=== PATIENT | female | born 1950 ===

== ENCOUNTER 2020-07-24 15:31 | Outpatient (REF) | payer MEDICARE, SELFPAY | END 2020-07-24 15:32 | disposition home or self-care (01) | LOC: HO.LAB 15:31 | PROVIDERS: Visit Provider Internal Medicine | DX: Z20.828 Contact with and (suspected) exposure to other viral communicable diseases (principal) | CPT/HCPCS: C9803; U0003 ==

== ENCOUNTER → 2021-01-01 10:29 | Outpatient (BNV) | payer MEDICARE, SELFPAY | PROVIDERS: PCP Student in an Organized Health Care Education/Training Program; Visit Provider Internal Medicine Medical Oncology | DX: Z85.048 Personal history of other malignant neoplasm of rectum, rectosigmoid junction, and anus (principal) | CPT/HCPCS: 99213 ==

== ENCOUNTER → 2021-04-12 09:36 | Outpatient (BNVA) | payer MEDICARE, SELFPAY | PROVIDERS: PCP Student in an Organized Health Care Education/Training Program; Visit Provider Surgery | DX: C21.0 Malignant neoplasm of anus, unspecified (principal) | CPT/HCPCS: 46600; 99212 ==

== ENCOUNTER → 2022-04-03 09:08 | Outpatient (BNVA) | payer OTHER, SELFPAY | PROVIDERS: PCP Student in an Organized Health Care Education/Training Program; Visit Provider Surgery | DX: C21.0 Malignant neoplasm of anus, unspecified (principal); Z92.21 Personal history of antineoplastic chemotherapy; Z92.3 Personal history of irradiation | CPT/HCPCS: 46600; 99212 ==

== ENCOUNTER → 2022-10-03 12:35 | Outpatient (BNVA) | payer OTHER, SELFPAY | PROVIDERS: PCP Student in an Organized Health Care Education/Training Program; Referring Provider Internal Medicine Medical Oncology; Visit Provider Surgery | DX: Z85.048 Personal history of other malignant neoplasm of rectum, rectosigmoid junction, and anus (principal); Z92.21 Personal history of antineoplastic chemotherapy; Z92.3 Personal history of irradiation | CPT/HCPCS: 99202 ==

== ENCOUNTER 2022-11-15 07:48 | Day surgery (SDC) | payer OTHER, SELFPAY ==
[2022-11-12 15:05] VITALS: BMI 24.7
--- NOTE | 2022-11-14 09:28 | HO.ANESPROP2 ---
HPI - Anesthesia Eval Consult details Narrative: 72yo F for Colonoscopy with possible polypectomy PMFSH Active Problems Active Problems: All Active Problems (Updated 11/12/22 @ 14:59 by Shivani Wilkins RN) Anal squamous cell carcinoma (Acute) Past Medical History Medical History Anal squamous cell carcinoma Anemia Diabetes High cholesterol HTN (hypertension) Family History Family History Father Liver cancer Surgical History Surgical History History of colon surgery Hx of biopsy Hx of excision of mass Social History Social History Household Members: Spouse Housing: Apartment Are you a primary career development specialist to a significant other at home: No Do you presently have visiting nurse or other home services: No Alcohol intake: former Patient Tobacco Use Status: Never used Tobacco service: No Current occupational status: disabled Meds Allergies Allergy/AdvReac Type Severity Reaction Status Date / Time No Known Allergies Allergy Verified 10/03/22 13:02 [No Known Allergies*] Home Medications Medication Instructions Recorded Confirmed Last Taken Type atorvastatin 10 mg tablet 1 tab PO BEDTIME 01/01/21 11/12/22 Unknown History calcium carbonate 500 mg-vitamin 1 tab PO QAM 01/01/21 11/12/22 Unknown History D3 10 mcg (400 unit) tablet (Oyster Shell Calcium-Vitamin D3) ferrous sulfate 325 mg (65 mg 1 tab PO QAM 01/01/21 11/12/22 Unknown History iron) tablet (FeroSul) glipizide 10 mg tablet 1 tab PO BID 01/01/21 11/12/22 Unknown History lisinopril 10 mg tablet 20 mg PO QAM 01/01/21 11/12/22 Unknown History metformin 500 mg tablet,extended 1 tab PO BID 01/01/21 11/12/22 Unknown History release 24 hr timolol maleate 0.5 % eye drops 1 drp ophthalmic (eye) BID 01/01/21 11/12/22 Unknown History Exam Exam Date and Time: November 14, 2022927 Height,Weight and Vital Signs: Height 5 ft 2 in Weight 61.235 kg Pertinent Lab Results Pertinent Lab Results: Laboratory Tests 09/27/22 09/27/22 11:10 11:10 WBC 5.3 Hgb 11.7 L Hct 36.2 L Plt Count 155 L Sodium 143 Potassium 4.6 Chloride 105 Carbon Dioxide 29 BUN 21 H Creatinine 0.79 Assessment and Plan Assessment Anesthesia Assessment: Chart Reviewed
[2022-11-15 08:21] VITALS: BMI 24.7
[2022-11-15 08:31] VITALS: BP 137/64; PULSE 74; RESP 18; TEMP 36.3; O2SAT 97
[2022-11-15 08:33] VITALS: BMI 24.7
[2022-11-15 08:39] LABS: Glucose, Whole Blood 114 mg/dL (60-115)
--- NOTE | 2022-11-15 08:43 | MHC.SHP ---
Pre-Procedural Eval Section A Date of Service: 11/15/22 Section B Chief Complaint: Malignant neoplasm of anus, unspecified Details of Present Illness: Has history of anal squamous cell carcinoma, now due for screening colonoscopy Relevant Family History (Specify if Yes): No Relevant Social History: None Present Medications: see Short Stay Collaborative assessment Medical History: Significant History ( anal squamous cell carcinoma) Allergies: Allergies Allergy/AdvReac Type Severity Reaction Status Date / Time No Known Allergies Allergy Verified 10/03/22 13:02 [No Known Allergies*] Review of Systems Sugical H&P ROS: Negative: Constitution, Cardiovascular, Respiratory, Neurological, Psychiatric, Hem-Onc, Allergic/Immunologic, Gastrointestinal, Genitourinary, Musculoskeletal, Integumentary, Endocrine and Eyes/Ears/Nose/Throat Exam Surgical H&P Exam: Normal: HEENT, Normal: Heart, Normal: Lungs, Normal: Extremities, Normal: Abdomen, Normal: Skin and Normal: Neurological Plan Diagnosis/Plan: Unchanged I have reviewed the history and physical and performed a pertinent physical examination on my patient. No changes have occurred unless specified. Time Spent With Patient Time: Total time managing care of this patient today ____ minutes.
--- NOTE | 2022-11-15 08:44 | P.CONAN_ITS ---
[facility] Active Problems Active Problems: All Active Problems (Updated 11/12/22 @ 14:59 by Shivani Wilkins RN) Anal squamous cell carcinoma (Acute) Past Medical History Medical History Anal squamous cell carcinoma Anemia Diabetes High cholesterol HTN (hypertension) Family History Family History Father Liver cancer Surgical History Surgical History History of colon surgery Hx of biopsy Hx of excision of mass History of Problems with Anesthesia: No Social History Social History Household Members: Spouse Housing: Apartment Are you a primary hospice care sales consultant to a significant other at home: No Do you presently have visiting nurse or other home services: No Alcohol intake: former Patient Tobacco Use Status: Never used Tobacco Use of substances other than those prescribed or required for medical reasons: No Advance Directives: No Advance Directives Information Provided: Yes service: No Current occupational status: disabled Meds Allergies Allergy/AdvReac Type Severity Reaction Status Date / Time No Known Allergies Allergy Verified 10/03/22 13:02 [No Known Allergies*] Active Medications: Current Medications Lactated Ringer's (Lr) 1,000 mls @ 100 mls/hr IVCONT .Q10H [facility] Home Medications Medication Instructions Recorded Confirmed Last Taken Type atorvastatin 10 mg tablet 1 tab PO BEDTIME 01/01/21 11/12/22 Unknown History calcium carbonate 500 mg-vitamin 1 tab PO QAM 01/01/21 11/12/22 Unknown History D3 10 mcg (400 unit) tablet (Oyster Shell Calcium-Vitamin D3) ferrous sulfate 325 mg (65 mg 1 tab PO QAM 01/01/21 11/12/22 Unknown History iron) tablet (FeroSul) glipizide 10 mg tablet 1 tab PO BID 01/01/21 11/12/22 Unknown History lisinopril 10 mg tablet 20 mg PO QAM 01/01/21 11/12/22 Unknown History metformin 500 mg tablet,extended 1 tab PO BID 01/01/21 11/12/22 Unknown History release 24 hr timolol maleate 0.5 % eye drops 1 drp ophthalmic (eye) BID 01/01/21 11/12/22 Unknown History Exam Exam Date and Time: November 15, 2022 0844 Height,Weight and Vital Signs: Height 5 ft 2 in Weight 61.235 kg Last Vital Signs Temp 97.4 F 11/15/22 08:31 Pulse 74 11/15/22 08:31 Resp 18 11/15/22 08:31 BP 137/64 11/15/22 08:31 Pulse Ox 97 11/15/22 08:31 O2 Del Method Room Air 11/15/22 08:31 Pertinent Lab Results Pertinent Lab Results: Laboratory Tests 11/15/22 08:36 POC Glucose 114 Airway Mallampati Class: II (edentulous) TM Dist: >3cm Neck ROM: Full Denture: Upper and Lower Loose/Missing/Broken Teeth: Yes, Upper and Lower Heart: RRR Lungs: CTA Assessment and Plan Assessment Anesthesia Assessment: Anesthesia Plan Discussed and Chart Reviewed Final Anesthetic Review History of Problems with Anesthesia: No NPO: Yes ASA Class: II Final Preanesthetic Review: Meds/Allgs Chart Reviewed, Consent Obtained/Reviewed and Anes Risks/Benef Reviewed Patient Risk: Low Procedure Risk: Low Anesthetic Plan Anesthetic Plan: MAC: Disposition: Standard PACU
[2022-11-15] MEDS: Lactated Ringers 1,000 ML 100 ML IVCONT (08:47)
--- NOTE | 2022-11-15 09:51 | P.OP_ITS ---
Operative Note Operative Note Date of Service: 11/15/22 Narrative: Preop diagnosis: Colon cancer screening, Postop diagnosis:1. occasional diverticuli, sigmoid 2. Mild telangiectatic changes in the rectum from radiation Procedure: Colonoscopy Surgeon: Kush Blanco MD The patient is a 72-year-old female, referred to me for screening colonoscopy pre she does have a history of squamous cell carcinoma of the anus and had undergone Treatment with chemotherapy and radiation and has had good response.She is currently in remission. She understood the technique Of colonoscopy. She was aware of the risks, benefits, and alternatives. She was brought to the endoscopy suite. She was placed in left lateral decubitus position under monitored anesthesia care. A full digital rectal exam was done. There was note of fibrotic changes in the anal canal from radiation. I gently inserted the colonoscope through the anal orifice and advanced this with insufflation all the way to the cecum. The cecum was intubated. The cecum was identified via visualization of the ileocecal valve as well as the appendiceal orifice. The cecal mucosa was unremarkable. The scope was gradually withdrawn with careful examination of the entire colonic mucosa being done with scope withdrawal. The patient had good bowel prep so it was unlikely that any lesion may have been missed. There was note of occasional diverticuli the left colon sigmoid. The rectum was reached. There were no lesions seen. There was note of some telangiectatic changes in the distal rectum and anus. There were no lesions in the anal canal. The scope was then withdrawn completel y. The patient tolerated procedure well. There were no immediate complications. Her next colonoscopy for screening may be in the next 10 years if he still healthy by then. We will continue to do surveillance for her anal canal cancer.
[2022-11-15 09:55] VITALS: BP 124/54; PULSE 62; RESP 16; TEMP 36.3; O2SAT 99
[2022-11-15 10:10] VITALS: BP 124/61; PULSE 62; RESP 16; TEMP 36.7; O2SAT 97
== END 2022-11-15 10:24 | disposition home or self-care (01) ==
PROVIDERS: PCP Student in an Organized Health Care Education/Training Program; Visit Provider Surgery
PROC: 0DJD8ZZ Inspection of Lower Intestinal Tract, Via Natural or Artificial Opening Endoscopic (ICD-10-PCS; CPT 45378; principal; 2022-11-15 09:00)
DX: Z12.11 Encounter for screening for malignant neoplasm of colon (principal); Z85.048 Personal history of other malignant neoplasm of rectum, rectosigmoid junction, and anus; K62.7 Radiation proctitis; Y84.2 Radiological procedure and radiotherapy as the cause of abnormal reaction of the patient, or of later complication, without mention of misadventure at the time of the procedure; Y78.1 Therapeutic (nonsurgical) and rehabilitative radiological devices associated with adverse incidents; K57.30 Diverticulosis of large intestine without perforation or abscess without bleeding; Z92.21 Personal history of antineoplastic chemotherapy; Z92.3 Personal history of irradiation; D64.9 Anemia, unspecified; E11.9 Type 2 diabetes mellitus without complications; E78.00 Pure hypercholesterolemia, unspecified; I10 Essential (primary) hypertension; Z79.84 Long term (current) use of oral hypoglycemic drugs; Z79.899 Other long term (current) drug therapy; Z98.890 Other specified postprocedural states
CPT/HCPCS: G0105; 82947

== ENCOUNTER → 2022-12-09 09:45 | Outpatient (BNVA) | payer OTHER, SELFPAY | PROVIDERS: PCP Student in an Organized Health Care Education/Training Program; Visit Provider Surgery | DX: Z12.11 Encounter for screening for malignant neoplasm of colon (principal) | CPT/HCPCS: 99212 ==

== ENCOUNTER 2023-04-07 08:30 | Outpatient (AMB) | payer OTHER, SELFPAY ==
[2023-04-07 08:32] VITALS: BP 138/63; PULSE 70; BMI 25.4
--- NOTE | 2023-04-07 08:32 | A.OFFVIS_ITS ---
Intake Vital Signs 04/07/23 08:32 Height 5 ft 2 in Weight 139 lb BMI 25.4 BP 138/63 Blood Pressure Location Rt brachial Position Sitting Pulse 70 Intake Visit Reasons: year follow up rectal cancer Intake Note: This patient presents for a yearly follow-up assessment for rectal carcinoma. Patient c/o; reports no complaints at this time. Cashier General Required: Yes Cashier General Language: Snowboard Designer Name: Indigo Information Interpreted: non-clinical & clinical Accompanied by: Self / Same As Patient Allergies No Known Allergies [No Known Allergies*] Allergy (Verified 04/07/23 08:37) Medication List - Last Reconciled 04/07/23 by Kush Blanco MD atorvastatin 1 tab PO BEDTIME bisacodyl (Dulcolax (bisacodyl)) 10 mg (2 x 5 mg) PO ONCE 1 day calcium carbonate-vitamin D3 500 mg-10 mcg (400 unit) (Oyster Shell Calcium- Vitamin D3) 1 tab PO QAM ferrous sulfate (FeroSul) 1 tab PO QAM glipizide 1 tab PO BID lisinopril 20 mg PO QAM metformin ER 1 tab PO BID polyethylene glycol 3350 (Miralax) 238 grams PO ONCE 1 day timolol maleate 0.5% 1 drp ophthalmic (eye) BID HPI year follow up rectal cancer HPI Details 72-year-old fe male here for foll ow-up for a histor y of squamous cell carcinoma of the anus. She was madelyn gnosed to have squ amous cell carcino ma of the anus 201 5 and she had unde rgone chemotherapy and radiation for this. She has re sponded very well and has been doing well since then. She denies signif icant complaints a t this time. She had a colonoscopy last year which wa s unremarkable. She says she fee ls well overall. She denies any fei n in her anus. [facility] Medical History History of anal cancer Colon cancer screening Anal squamous cell carcinoma Anemia Diabetes High cholesterol HTN (hypertension) Surgical History History of colonoscopy (~11/15/22) Hx of excision of mass Hx of biopsy History of colon surgery Family History Father Liver cancer Social History Household Members: Spouse Housing: Apartment Are you a primary healthcare consulting manager to a significant other at home: No Do you presently have visiting nurse or other home services: No Alcohol intake: former Patient Tobacco Use Status: Never used Tobacco service: No Current occupational status: disabled Review of Systems Const Denies chills and Denies fever(s) Card Denies chest pain, Denies dyspnea and Denies dyspnea on exertion Resp Denies cough, Denies dyspnea and Denies dyspnea on exertion GI Denies hematochezia and Denies change in bowel habits Denies hematuria Musc Denies back pain and Denies limited range of motion Neuro Denies focal weakness and Denies convulsions Psych Denies depression and Denies mood swings Physical Exam Vital Signs: Last Vital Signs Pulse 70 04/07/23 08:32 BP 138/63 04/07/23 08:32 BMI result Body Mass Index 25.4 Const General: comfortable and no acute distress Orientation/consciousness: patient oriented x3 Neck Neck: Yes no lymphadenopathy Resp Auscultation: clear to auscultation bilaterally Cardio Rhythm: regular rhythm GI Other: Rectal exam shows fibrotic changes around the anus from previous radiation treatment, no new lesions surrounding the anal verge Palpation (GI): Soft to palpation, nontender and no guarding Neuro General: patient oriented x3 Office Procedures Anoscopy She was in andrzej-knife position. The anoscope was gently inserted. A full examination of the anal canal was done. There were no lesions seen. There is no ulceration or any mucosal changes. There was no fissure. There was no induration on digital exam. There was no blood Fibrotic changes and telangiectasia from previous radiation noted. [id number] Assessment & Plan Assessment & Plan (1) History of anal cancer: Code(s): Z85.048 - Personal history of other malignant neoplasm of rectum, rectosigmoid junction, and anus Plan: She is doing well after chemotherapy and radiation for squamous cell cancer of the anal canal. Her exam is unremarkable. Anoscopy does not reveal any suggestion of a new lesion or recurrence She continues to see her oncologist as well. I told her that I will repeat her anoscopy next year. Coding Level of Care Code Est Pt Level 3 (30194) Diagnoses History of anal cancer Z85.048 CPT Codes Details - CPT: 63361-[id number] ([id number])
== END 2023-04-07 08:51 | disposition home or self-care (01) ==
PROVIDERS: Visit Provider Surgery
DX: Z85.048 Personal history of other malignant neoplasm of rectum, rectosigmoid junction, and anus (principal)
CPT/HCPCS: 46600; 99213

== ENCOUNTER → 2023-04-07 08:30 | Outpatient (BNVA) | payer OTHER, SELFPAY | PROVIDERS: Visit Provider Surgery | DX: Z85.048 Personal history of other malignant neoplasm of rectum, rectosigmoid junction, and anus (principal) | CPT/HCPCS: 46600; 99212 ==

== ENCOUNTER 2023-05-22 11:27 | Outpatient (REF) | payer OTHER, SELFPAY ==
[2023-05-22 14:34] LABS: Alanine Aminotransferase 17 U/L (0-31); Albumin Level 4.7 g/dL (3.5-5.0); Alkaline Phosphatase 82 U/L (39-117); Anion Gap 13 (12-20); Aspartate Amino Transferase 17 U/L (5-31); Bilirubin Direct 0.3 mg/dL (0.0-0.5); Bilirubin Total 0.7 mg/dL (0.0-1.0); Blood Urea Nitrogen 29 mg/dL (9-16); Calcium 10.1 mg/dL (8.4-10.2); Carbon Dioxide 25 mmol/L (22-29); Chloride 108 mmol/L (96-108); Cholesterol 102 mg/dL (<200); Estimated Glomerular Filt Rate 58; Glucose Fasting 130 mg/dL (60-99); HDL Cholesterol 50 mg/dL (>40); LDL Cholesterol Calculated 44 mg/dL (<100); Potassium 4.3 mmol/L (3.3-5.1); Sodium 142 mmol/L (135-145); Total Protein 7.8 g/dL (6.5-8.0); Triglycerides 43 mg/dL (<150)
[2023-05-22 15:09] LABS: Microalbum/Creatinine Ratio Ur 13.6 ug/mg cr (<30)
== END 2023-05-22 11:28 | disposition home or self-care (01) ==
LOC: HO.CHCLDS 11:27
PROVIDERS: Visit Provider Student in an Organized Health Care Education/Training Program
DX: E11.9 Type 2 diabetes mellitus without complications (principal); I10 Essential (primary) hypertension
CPT/HCPCS: 36415; 80048; 80061; 80076; 82043; 82570

== ENCOUNTER 2023-12-23 09:02 | Outpatient (REF) | payer OTHER, SELFPAY ==
[2023-12-23 15:10] LABS: Estimated Average Glucose 148 mg/dL; Hemoglobin A1C 152.2736 umol/L; Hemoglobin A1c % 6.8 % (<6.0)
[2023-12-23 15:19] LABS: Alanine Aminotransferase 14 U/L (0-31); Albumin Level 4.5 g/dL (3.5-5.0); Alkaline Phosphatase 83 U/L (39-117); Anion Gap 13 (12-20); Aspartate Amino Transferase 14 U/L (5-31); Bilirubin Direct 0.3 mg/dL (0.0-0.5); Bilirubin Total 0.6 mg/dL (0.0-1.0); Blood Urea Nitrogen 22 mg/dL (9-16); Calcium 9.7 mg/dL (8.4-10.2); Carbon Dioxide 26 mmol/L (22-29); Chloride 110 mmol/L (96-108); Cholesterol 116 mg/dL (<200); Estimated Glomerular Filt Rate > 60; Glucose Random 148 mg/dL (60-115); HDL Cholesterol 52 mg/dL (>40); LDL Cholesterol Calculated 49 mg/dL (<100); Potassium 4.3 mmol/L (3.3-5.1); Sodium 145 mmol/L (135-145); Total Protein 7.5 g/dL (6.5-8.0); Triglycerides 76 mg/dL (<150)
== END 2023-12-23 09:03 | disposition home or self-care (01) ==
LOC: HO.CHCLDS 09:02
PROVIDERS: Visit Provider Student in an Organized Health Care Education/Training Program
DX: E11.9 Type 2 diabetes mellitus without complications (principal)
CPT/HCPCS: 36415; 80048; 80061; 80076; 83036

== ENCOUNTER 2024-04-05 12:55 | Outpatient (AMB) | payer OTHER, SELFPAY ==
--- NOTE | 2024-04-05 12:58 | A.OFFVIS_ITS ---
Vital Signs 04/05/24 13:06 Height 5 ft 5 in Weight 135 lb 8 oz BMI 22.5 BP 170/71 H Blood Pressure Location Lt brachial Position Sitting Pulse 68 Intake Visit Reasons: year follow up rectal cancer Intake Note: Patient is seen in office for yearly follow up visit, following rectal cancer. Pt c/o: denies n/v/d/c, no rectal bleeding, admits to an area in the bottom that is dry and would like to have evaluated Cosmetologist Apprentice Required: Yes Cosmetologist Apprentice Language: Cooling Tower Technician Services: Cosmetologist Apprentice Present Cosmetologist Apprentice Name: Maddie MULLEN Information Interpreted: non-clinical & clinical Accompanied by: Self / Same As Patient Allergies No Known Allergies [No Known Allergies*] Allergy (Verified 09/29/23 09:11) Medication List - Last Reconciled 04/05/24 by Kush Blanco MD atorvastatin 1 tab PO BEDTIME calcium carbonate-vitamin D3 500 mg-10 mcg (400 unit) (Oyster Shell Calcium- Vitamin D3) 1 tab PO QAM ferrous sulfate (FeroSul) 1 tab PO QAM glipizide 1 tab PO BID lisinopril 20 mg PO QAM metformin ER 1 tab PO BID timolol maleate 0.5% 1 drp ophthalmic (eye) BID HPI HPI year follow up rectal cancer: Details: 73-year-old female here for a follow-up for squamous cell carcinoma of the anus. She had been diagnosed in 2014 and had undergone chemotherapy and radiation with very good response. She has had anoscopy in the office every year this had been unremarkable She denies any significant complaints at this time. She denies passage of blood per rectum. She denies any pain in the anus. She had a colonoscopy last year which was unremarkable. [facility] Medical History History of anal cancer Colon cancer screening Anal squamous cell carcinoma Anemia Diabetes High cholesterol HTN (hypertension) Surgical History (Updated 04/05/24 @ 13:07 by PAZ Macias) Hx of cataract extraction History of colonoscopy (~11/15/22) Hx of excision of mass Hx of biopsy History of colon surgery Family History Father Liver cancer Social History Household Members: Spouse Housing: Apartment Are you a primary healthcare interpreter to a significant other at home: No Do you presently have visiting nurse or other home services: No Alcohol intake: former Patient Tobacco Use Status: Never used Tobacco service: No Current occupational status: disabled Review of Systems Const Denies chills and Denies fever(s) Card Denies chest pain, Denies dyspnea and Denies dyspnea on exertion Resp Denies cough, Denies dyspnea and Denies dyspnea on exertion GI Denies hematochezia and Denies change in bowel habits Denies hematuria Musc Denies back pain and Denies limited range of motion Neuro Denies focal weakness and Denies convulsions Psych Denies depression and Denies mood swings Physical Exam Const General: comfortable and no acute distress Orientation/consciousness: patient oriented x3 Neck Neck: Yes no lymphadenopathy Resp Auscultation: clear to auscultation bilaterally Cardio Rhythm: regular rhythm GI Other: Rectal exam shows radiation changes in the perianal skin with telangiectasia, dr johanny, no new lesions in the anus Palpation (GI): Soft to palpation, nontender and no guarding Neuro General: patient oriented x3 Office Procedures Anoscopy She was in andrzej-knife position. The anoscope was gently inserted. A full examination of the anal canal was done. There were no lesions in the anal canal. There was no ulceration or any growth. There was no bleeding. There was no induration on digital exam. She did have some perianal telangiectasia and skin dryness from radiation changes [id number] Assessment & Plan Assessment & Plan (1) History of anal cancer: Code(s): Z85.048 - Personal history of other malignant neoplasm of rectum, rectosigmoid junction, and anus Category: Medical Plan: Current exam does not reveal any suggestion of recurrent or new lesions. She feels well overall. I explained to her that I would continue with regular anoscopy every year. I did tell her that if she notices changes including new bleeding, worsening pain, she should come back to the office earlier than that. She seems to have a good understanding of the plan. She is comfortable with this. Coding Level of Care Code Est Pt Level 3 (26927) Diagnoses History of anal cancer Z85.048 CPT Codes Details - CPT: [id number] ([id number])
[2024-04-05 13:06] VITALS: BP 170/71; PULSE 68; BMI 22.5
== END 2024-04-05 13:19 | disposition home or self-care (01) ==
PROVIDERS: PCP Student in an Organized Health Care Education/Training Program; Visit Provider Surgery
DX: Z85.048 Personal history of other malignant neoplasm of rectum, rectosigmoid junction, and anus (principal)
CPT/HCPCS: 46600; 99213

== ENCOUNTER → 2024-04-05 12:55 | Outpatient (BNVA) | payer OTHER, SELFPAY | PROVIDERS: PCP Student in an Organized Health Care Education/Training Program; Visit Provider Surgery | DX: Z85.048 Personal history of other malignant neoplasm of rectum, rectosigmoid junction, and anus (principal) | CPT/HCPCS: 46600; 99212 ==

== ENCOUNTER 2024-10-26 10:57 | Outpatient (REF) | payer OTHER, SELFPAY ==
--- OUTSIDE RECORDS SUMMARY | 2024-10-26 13:11 | XMS_ITS | Encounter Summary ---
Author Organization [employer] Address [address] [facility] [address] [place] [address] Care Team Providers Care Loom Changer Name Role Phone Rossi Huston MD Primary Care Provider [phone] Reason for Visit * Reason Comments Med Refill Encounter Details Date Type Department Care Team (Late st Contact Info) Description 05/03/2023 Refill [facility] [address] [place], [place] [phone] Rossi Huston MD [address] [place] [address] Social History Tobacco Use Types Packs/Day Years Used Date Smoking Tobacco: Never Assessed Comments Unknown Sex and Gender Information Value Date Recorded Sex Assigned at Female 05/27/2022 10:22 AM EDT Legal Sex Female 10:22 AM EDT Gender Identity Choose not to disclose 10:22 AM EDT Sexual Orientation Choose not to disclose 2021 10:22 AM EDT documented as of this encounter Plan of Treatment Not on file documented as of this encounter Visit Diagnoses Not on filedocumented in this encounter Care Teams Loom Changer Relationship Specialty Start Date End Date Rossi Huston MD [address] [place] [address] PCP - General Family Medicine 08/26/13 documented as of this encounter
--- OUTSIDE RECORDS SUMMARY | 2024-10-26 13:12 | XMS_ITS | Encounter Summary ---
Author Organization [email or web address] Address [address] [facility] [address] [place] [address] Care Team Providers Care Calculating Machine Mechanic Name Role Phone Rossi Huston MD Primary Care Provider [phone] Encounter Details Date Type Department Care Team (Latest Contact Info) Description 10/26/2024 Travel Social History Tobacco Use Types Packs/Day Years Used Date Smoking Tobacco: Never Smokeless Tobacco: Never Alcohol Use Standard Drinks/Week Comments Never 0 (1 standard drink = 0.6 oz pur e alcohol) Alcohol Answer Date Recorded Frequency of Alcohol Consumption Not on file 05/22/2023 Average Number of Drinks Not on file 023 Frequency of Binge Drinking Not on file 04/28 Score 0 05/22/2023 Depression Answer Date Recorded Patient Health Questionnaire-9 Score 0 12/18/2023 Patient Health Questionnaire-9 Score 0 12/18/2023 Last PHQ-9: Questionnaire Data Not on file 0 12/18/2023 Housing Stability Answer Date Recorded What is your housing situation today? I have sixto chakraborty 05/22/[address] you li ve. Do you have problems with any of the following? None of the above 05/22/2023 Food Insecurity Answer Date Recorded Within the past 12 months, y ou worried that your food would run out before you got money to buy more: Never True 05/22/2023 Within the past 12 months,th e food you bought just didn't last and you didn't have enough money to get more: Never True Transportation Answer Date Recorded In the past 12 months, has l ack of transportation kept you from medical appts, meetings, work or from getting things needed for daily living? No 05/22/2023 Utilities Answer Date Recorded In the past 12 months, has t he electric, gas, oil or water company threatened to shut off services in your home? No 05/22/2023 Depression Answer Date Recorded Patient Health Questionnaire-2 Score 0 12/18/2023 Internet Access Answer Date Recorded Internet Access Q1 No 10/26/2024 Internet Access Q2 I do not want or need it 07/2024 Comments No Sex and Gender Information Value Date Recorded [...] Diagnoses Not on filedocumented in this encounter Additional Health Concerns Assessment Noted Time PHQ-9 Depression Total Score: 0 12/18/19 24 11:05 AM EDT documented as of this encounter Care Teams Calculating Machine Mechanic Relationship Specialty Start Date End Date Rossi Huston MD [address] [place] [id number] PCP - General Family Medicine 08/26/13 documented as of this encounter
--- OUTSIDE RECORDS SUMMARY | 2024-10-26 13:12 | XMS_ITS | Encounter Summary ---
Author Organization [employer] Address [address] [facility] [address] [place] [address] Care Team Providers Care Verification Lead Name Role Phone Rossi Huston MD Primary Care Provider [phone] Encounter Details Date Type Department Care Team ([facility] st Contact Info) Description 11/15/2022 Orders Only [facility] [address] [place] [address] Ly Keane LPN Social History Tobacco Use Types Packs/Day Years [...] on filedocumented in this encounter Care Teams Verification Lead Relationship Specialty Start Date End Date Rossi Huston MD [address] [place] [id number] PCP - General Family Medicine 08/26/13 documented as of this encounter
--- OUTSIDE RECORDS SUMMARY | 2024-10-26 13:12 | XMS_ITS | Encounter Summary ---
Author Organization [employer] Address [address] [facility] [address] [place] [address] Care Team Providers Care Guide Domestic Tour Name Role Phone Rossi Huston MD Primary Care Provider [phone] Reason for Visit * Reason Comments Med Refill Encounter Details Date Type Department Care Team ([facility] st Contact Info) Description 10/20/2024 Refill [facility] [address] [place] [address] Rossi Huston MD [address] [place] [address] Social History Tobacco Use Types Packs/Day Years [...] documented as of this encounter Care Teams Guide Domestic Tour Relationship Specialty Start Date End Date Rossi Huston MD [address] [place] [address] PCP - General Family Medicine 08/26/13 documented as of this encounter
--- OUTSIDE RECORDS SUMMARY | 2024-10-26 13:12 | XMS_ITS | Encounter Summary ---
Author Organization [employer] Address [address] [facility] [address] [place] [address] Care Team Providers Care Packaging Assembler Name Role Phone Rossi Huston MD Primary Care Provider [phone] Reason for Visit * Reason Comments Med Refill Encounter Details Date Type Department Care Team ([facility] st Contact Info) Description 05/08/2023 Refill [facility] [address] [place], [place] [phone] Gerber Tello MD [address] [place], [place] [phone] Social History Tobacco Use Types Packs/Day Years [...] on filedocumented in this encounter Care Teams Packaging Assembler Relationship Specialty Start Date End Date Rossi Huston MD [address] [place] [address] PCP - General Family Medicine 08/26/13 documented as of this encounter
--- OUTSIDE RECORDS SUMMARY | 2024-10-26 13:12 | XMS_ITS | Clinical Summary ---
Author Organization [employer] Address [address] [facility] 7t [place] [address] Care Team Providers Care Cottage Parent Name Role Phone Rossi Huston MD Primary Care Provider [phone] Allergies No known active allergies Medications TRUEplus Lancets 33G misc TEST BLOOD SUGAR TWICE DAILY 3 Active dapagliflozin (Farxiga) 5 MG Take 1 tablet (5 mg) by mouth Once per day. 30 tablet 11 4 12/26/19 25 Active metFORMIN (Glucophage) 1000 MG tablet Take 1 tablet by mouth every 12 (twelve) hours. 2 Active polyvinyl alcohol (Liquifilm Tears) 1.4 % ophthalmic solution PLACE ONE DROP IN EACH EYE FOUR TIMES DAILY 4 Active meclizine (Antivert) 25 MG tablet Take 1 tablet by mouth every 8 (eight) hours. Active Ferrous Sulfate (iron) 325 (65 Fe) MG tablet TAKE ONE TABLET EVERY MORNING 30 tablet 4 4 Active atorvastatin (Lipitor) 10 MG tablet TAKE ONE TABLET EVERY NIGHT AT BEDTIME 90 tablet 3 4 Active lisinopril 20 MG tablet Take 1 tablet (20 mg) by mouth in the morning. 90 tablet 3 4 07/05/20 25 Active glipiZIDE (Glucotrol) 10 MG tablet TAKE ONE TABLET BY MOUTH IN THE MORNING AND EVENING 180 tablet 4 4 Active FREESTYLE LITE test strip TEST BLOOD SUGAR TWICE DAILY 100 strip 5 5 Active Easy Touch Lancets 33G/Twist misc TEST BLOOD SUGAR TWICE DAILY 100 each 3 5 10/12/19 26 Active Calcium Carb-Cholecalc iferol 500-10 MG-MCG chewable tablet CHEW ONE TABLET EVERY MORNING WITH FOOD 30 tablet 11 5 Active Dextromethorph an-guaiFENesin (Mucinex DM) 30-600 MG tablet sustained-rele ase 12 hour Use 1 tab TID 28 tablet 5 Active FREESTYLE LITE test strip TEST BLOOD SUGAR TWICE DAILY 100 strip 5 4 10/12/19 25 Discontinued Calcium Carb-Cholecalc iferol 500-10 MG-MCG chewable tablet TAKE ONE TABLET EVERY MORNING WITH FOOD 30 tablet 11 4 10/27/19 25 Discontinued Easy Touch Lancets 33G/Twist misc TEST BLOOD SUGAR TWICE DAILY 90 each 3 4 10/12/19 25 Discontinued Active Problems Problem Noted Date Diagnosed Date Type 2 diabetes mellitus wit hout complication, without long-term current use of insulin 05/22/2023 Anal squamous cell carcinoma 05/22/2023 Essential hypertension 05/25/2014 3 Encounters Date Type Department Care Team Description 10/26/2024 10:45 AM EDT Office Visit [facility] CHC MED & PEDS [address] [place] [address] Rossi Huston MD Type 2 diabetes mellitus without complication, without long-term current use of insulin ([facility]) (Primary Dx); Essential hypertension; Viral syndrome 10/26/2024 Travel 10/20/2024 Refill [facility] MED & PEDS [address] [place] [id number] Rossi Huston MD 10/10/2024 Refill [facility] MED & PEDS [address] [place] [id number] Rossi Huston MD 09/30/2024 Orders Only [facility] MED & PEDS [address] [place] [address] Provider, MD Toni from Last 3 Months Immunizations Name Administration Dates Next Due Influenza High-dose Quadriva lent Preservative Free 05/14/2023,05/30/2022,06/01/2020 Influenza Injectable Quadriv alant Preservative Free IIV4 MDCK 07/13/2021 Influenza injectable quadriv alent IIV4 with preservative 05/06/2018,05/26/2017,06/04/2016 Influenza, High Dose Seasona l, Preservative Free 04/27/2024,08/25/2019 Influenza, IIV3, injectable 05/25/2014 Influenza, Injectable, MDCK, preservative free 05/01/2015 Influenza, Split (incl. david fied surface antigen) 05/21/2013,07/09/2012 Pneumococcal Conjugate PCV 13 06/04/2016 Pneumococcal Polysaccharide PPSV23 08/25/2019,,10/27/2012 Tdap 05/14/2023,10/27/2012 Zoster, Recombinant 09/18/2021,07/13/2021 Social History Tobacco Use Types Packs/Day Years Used Date Smoking Tobacco: Never Smokeless Tobacco: Never Tobacco Cessation:Counseling Given: Not Answered Alcohol Use Standard Drinks/Week Comments Never 0 [...] is your housing situation today? I have sixtosparkle chakraborty 05/22/[address] you [...] the past 12 months, has t he Team Apart, gas, oil or water [employer] threatened to shut off services in your [...] not to disclose 2021 10:22 AM EDT Last Filed Vital Signs Vital Sign Reading Time Taken Comments Blood Pressure 140/76 10/26/2024 10:35 AM EDT Pulse 70 10/26/2024 10:35 AM EDT Temperature 36.5 ??C (97.7 ??F) 10/26/2024 10:35 AM E DT Respiratory Rate 20 10/26/2024 10:35 AM EDT Oxygen Saturation 97% 10/26/2024 10:35 AM EDT Inhaled Oxygen Concentration - - Weight 59.9 kg (132 lb) 10/26/2024 10:35 AM EDT Height 160 cm (5' 3 ) 10/26/2024 10:35 AM EDT Body Mass Index 23.38 10/26/2024 10:35 AM EDT Plan of Treatment Health Maintenance Due Date Last Done Comments CT Colonography 1950 FIT DNA/Cologuard 1950 FIT 1950 FOBT 1950 Sigmoidoscopy 1950 Eye Exam 1960 Alcohol/Substance Use Screening 1962 Hepatitis C Screening 1968 COVID-19 Vaccine ( season) 2024 08/07/2021, 11/10/2020, 10/13/2020 Diabetes: Foot Exam 05/22/2024 05/22/2023, 05/22/2023, 05/22/2023, Additional history exists Diabetes: Urine Protein Screening 05/22/2024 05/22/2023, 01/01/2022, 01/17/2021 Colonoscopy 12/09/2024 Colorectal Cancer Screening 12/09/2024 Depression Screening 12/17/2024 12/18/2023, 12/18/19 Lipid Panel 12/22/2024 12/23/2023, 04/28, 01/01/2022, Additional history exists Diabetes: Hemoglobin A1C 01/25/2025 025, 04/27/2024, 12/23/2023, Additional history exists Mammogram 04/10/2025 04/10/2024 RSV Patients and Patients Aged 60 years or older (1 - 1-dose 75+ series) 2025 SDOH Screening 10/26/2025 10/26/2024 Tobacco Screening 10/26/2025 10/26/2024 DTaP/Tdap/Td Vaccines (3 - Td or Tdap) 05/14/2033 05/14/2023, 10/27/2012 Pneumococcal Vaccine: 50+ Years Completed 08/25/2019, 06/04/2016, 05/01/2015, Additional history exists Zoster Vaccines Completed 09/18/2021, 07/13/2021 Influenza Vaccine Completed 04/27/2024, , 05/30/2022, Additional history exists HIB Vaccines Aged Out No longer eligi ble based on patient's age to complete this topic HPV Vaccines Aged Out No longer eligi ble based on patient's age to complete this topic Hepatitis A Vaccines Aged Out No long er eligible based on patient's age to complete this topic Hepatitis B Vaccines Aged Out No long er eligible based on patient's age to complete this topic IPV Vaccines Aged Out No longer eligi ble based on patient's age to complete this topic Meningococcal Vaccine Aged Out No masha mateo eligible based on patient's age to complete this topic RSV under 20 months Aged Out No longe r eligible based on patient's age to complete this topic Rotavirus Vaccines Aged Out No longer eligible based on patient's age to complete this topic Procedures Procedure Name Priority Date/Time Associated Diagnosis Comments POCT INFLUENZA A Routine 10/26/2024 10:5 4 AM EDT Viral syndrome POCT INFLUENZA B Routine 10/26/2024 10:5 2 AM EDT Viral syndrome POCT RAPID COVID ANTIGEN Routine 10/26/2024 10:50 AM EDT Viral syndrome POCT GLYCATED HEMOGLOBIN, TOTAL Routine 10/26/2024 10:46 AM EDT Type 2 diabetes mellitus without complication, without long-term current use of insulin ([facility]/HCC) POCT GLUCOSE Routine 10/26/2024 10:45 AM EDT Type 2 diabetes mellitus without complication, without long-term current use of insulin ([facility]) COMPREHENSIVE METABOLIC PANEL Routine 09/28/2024 9:44 AM EST HM MAMMOGRAPHY Routine 04/10/2024 8:32 AM EDT LIPID PANEL, STANDARD Routine 12/23/2023 9:04 AM EDT Type 2 diabetes mellitus without complication, without long-term current use of insulin ([facility]) ALBUMIN, RANDOM URINE W/CREATININE Routine 05/22/2023 11:40 AM EDT from Last 3 Months or Most Recently Relevant to Health Maintenance Results * POCT Rapid Influenza A OSOM (10/26/2024 10:54 AM EDT) Pathologist [facility] Rapid Influenza A Ag Negative Negative, Indeterminate QC Media Lot # [id number] Lot# Expiration Date Swab Nasopharyngeal structure / Unknown 10/26/2024 10:54 AM EDT us Rossi Huston MD POINT OF CARE TEST ENTER/EDIT OR DERABLES Final Result * POCT Rapid Influenza B OSOM (10/26/2024 10:52 AM EDT) [facility] Rapid Influenza B Ag Negative Negative, Indeterminate QC Media Lot # [id number] Lot# Expiration Date Swab 10/26/2024 10:5 2 AM EDT us Rossi Hutson MD POINT OF CARE TEST ENTER/EDIT OR DERABLES Final Result * POCT Rapid Covid-19 BinaxNOW (10/26/2024 10:50 AM EDT) Rapid COVID Ag Negative QC Media Lot # [id number] Lot# Expiration Date Swab 10/26/2024 10:5 0 AM EDT Rossi Huston MD POINT OF CARE TEST ENTER/EDIT OR DERABLES Final Result * (ABNORMAL) POCT HGB A1C (10/26/2024 10:46 AM EDT) Hemoglobin A1C 7.7(A) 4.0 - 6.0 % QC Media Lot # [id number] Lot# Expiration Date Blood 10/26/2024 10:4 6 AM EDT Rossi Huston MD POINT OF CARE TEST ENTER/EDIT OR DERABLES Final Result * POCT Glucose (10/26/2024 10:45 AM EDT) Pathologist [facility] Glucose Blood, POC 170 60 - 200 mg/dL Comment:fasting QC Media Lot # [id number] Lot# Expiration Date Blood Capillary blood specimen / Unknown 10/26/2024 10:45 AM EDT Result [facility] Rossi Huston MD POINT OF CARE TEST ENTER/EDIT OR DERABLES Final Result * Comprehensive Metabolic Panel (09/28/2024 9:44 AM EST) Blood Venous blood specimen / Unknown Historical Provider LAB BLOOD ORDERABLES Balbina l Result * Hm Mammography (04/10/2024 8:32 AM EDT) Anatomical Region Laterality Modality Other Historical Provider HEALTH MAINTENANCE Final Result * Lipid Panel, Standard (12/23/2023 9:04 AM EDT) Triglycerides 76 <150 mg/dL [facility] Comment:Desirable Triglyceri de: less than 150 mg/dLBorderline High Triglyceride 150-199 mg/dLHigh Triglyceride: 200-499 mg/dLVery High Triglyceride: greater than or equal to 5OO mg/dL Cholesterol 116 <200 mg/dL [facility] Comment:Desirable Cholestero l: less than 200 mg/dLBorderline High Cholesterol: 200-239 mg/dLHigh Cholesterol: greater than 239 mg/dL LDL Cholesterol Calculated 49 <100 mg/dL [facility] Comment:Desirable LDL: less than 100 mg/dLNear Optimal/Above Optimal LDL: 110- 129 mg/dLBorderline High LDL: 130-159 mg/dLHigh LDL: 160-189 mg/dLVery High LDL: greater than or equal to 190 mg/dL HDL Cholesterol 52 >40 mg/dL [facility] Comment:Desirable HDL: great er than 40 mg/dL Note: This HDL assay may give artificially low results in patients with liver disease. Blood Venous blood specimen / Unknown 12/23/2023 9:04 AM EDT 12/23/2023 2:38 PM EDT us Rossi Huston MD LAB BLOOD ORDERABLES Final Resul t [facility] [address] [place] [phone] * Albumin, Random Urine W/Creatinine (05/22/2023 11:40 AM EDT) Creatinine, Urine 263.29 mg/dL [facility] Microalbumin Urine 36.0 mg/L [facility] Microalbum Creatinine Ratio Ur 13.6 <30 ug/mg cr [facility] Comment:Albumin/Creatinine R atio Reference Ranges: Normal: < 30 ug/mg creatinine Microalbuminuria: 30 - 300 ug/mg creatinineClinical Albuminuria: > 300 ug/mg creatinine 05/22/2023 11:4 0 AM EDT 05/22/2023 2:28 PM EDT Rossi Huston MD LAB URINE ORDERABLES Final Resul t [facility] [address] [place] [phone] [phone] from Last 3 Months or Most Recently Relevant to Health Maintenance Insurance * Guarantor: Katie Alexander Account Type Relation to Patient Date of Phone Billing Address [facility]Family [facility] [address] Care Teams Cottage Parent Relationship Specialty Start Date End Date Rossi Huston MD [address] [place] [id number] PCP - General Family Medicine 08/26/13
--- OUTSIDE RECORDS SUMMARY | 2024-10-26 13:12 | XMS_ITS | Encounter Summary ---
Author Organization [employer] Address [address] [facility] 7t [place] [address] Care Team Providers Care Commanding Officer Traffic Division Name Role Phone Rossi Huston MD Primary Care Provider [phone] Reason for Visit * Reason Comments Med Refill Encounter Details Date Type Department Care Team ([facility] st Contact Info) Description 08/19/2023 Refill [facility] CHC MED & PEDS [address] [place] [address] Rossi Huston MD [address] [place] [address] Social History Tobacco Use Types Packs/Day Years [...] Date Recorded Patient Health Questionnaire-9 Score 0 05/22/2023 Patient Health Questionnaire-9 Score 0 05/22/2023 Last PHQ-9: Questionnaire Data Not on file 1 Housing Stability Answer Date Recorded What is your housing situation today? I have isxto chakraborty 05/22/[address] you [...] Date Recorded Patient Health Questionnaire-2 Score 0 05/22/2023 Comments Unknown Sex and Gender Information Value [...] Noted Time PHQ-9 Depression Total Score: 0 05/22/20 23 10:44 AM EDT documented as of this encounter Care Teams Commanding Officer Traffic Division Relationship Specialty Start Date End Date Rossi Huston MD [address] [place] [phone] PCP - General Family Medicine 08/26/13 documented as of this encounter
--- OUTSIDE RECORDS SUMMARY | 2024-10-26 13:12 | XMS_ITS | Encounter Summary ---
Author Organization [employer] Address [address] [facility] 7t [place] [address] Care Team Providers Care Sheriffs Officer Name Role Phone Rossi Huston MD Primary Care Provider [phone] Encounter Details Date Type Department Care Team ([facility] st Contact Info) Description 09/30/2024 Orders Only [facility] CHC MED & PEDS [address] [place] [address] Provider, MD Toni Social History Tobacco Use Types Packs/Day Years [...] Recorded Patient Health Questionnaire-2 Score 0 12/18/2023 Comments No Sex and Gender Information Value Date Recorded Sex Assigned at Female 05/27/2022 10:22 AM EDT Legal Sex Female 10:22 AM EDT Gender Identity Choose not to disclose 10:22 AM EDT Sexual Orientation Choose not to disclose 2021 10:22 AM EDT documented as of this encounter Plan of Treatment Not on file documented as of this encounter Procedures Procedure Name Priority Date/Time Associated Diagnosis Comments COMPREHENSIVE METABOLIC PANEL Routine 09/28/2024 9:44 AM EST documented in this encounter Results * Comprehensive Metabolic Panel (09/28/2024 9:44 AM EST) Blood Venous blood specimen / Unknown us Historical Provider LAB BLOOD ORDERABLES Balbina l Result documented in this encounter Visit Diagnoses Not on filedocumented in this encounter Additional Health Concerns Assessment Noted Time PHQ-9 Depression Total Score: 0 12/18/19 24 11:05 AM EDT documented as of this encounter Care Teams Sheriffs Officer Relationship Specialty Start Date End Date Rossi Huston MD [address] [place] [phone] PCP - General Family Medicine 08/26/13 documented as of this encounter
--- OUTSIDE RECORDS SUMMARY | 2024-10-26 13:12 | XMS_ITS | Clinical Summary ---
Author Organization [employer] [facility] it[facility] Address [address] [place] [address] Care Team Providers Care Supervisor Belt And Link Assembly Name Role Phone Unavailable Primary Care Provider Unavailabl e Social History Tobacco Use Types Packs/Day Years Used Date Smoking Tobacco: Never Assessed Comments Unknown Sex and Gender Information Value Date Recorded Sex Assigned at Not on file Legal Sex Female 10:46 PM EST Gender Identity Not on file Sexual Orientation Not on file Plan of Treatment Health Maintenance Due Date Last Done Comments Breast Cancer Screening 1950 DTaP,Tdap,and Td Vaccines (1 - Tdap) 1969 Pneumococcal Vaccine: 50+ Ye ars (1 of 1 - PCV) 2000 Zoster Vaccines (1 of 2) 2000 COVID-19 Vaccine ( - 2023-2 5 season) 2024 Influenza Vaccine (Season Ended) 2025 RSV Immunization Patients 60 + Years Old (1 - 1-dose 75+ series) 2025 HIB Vaccines Aged Out No longer eligi [...] on patient's age to complete this topic MMR Vaccines Aged Out No longer eligi ble based on patient's age to complete this topic Meningococcal ACWY Vaccine Aged Out N o longer eligible based on patient's age to complete this topic Meningococcal B Vacine Aged Out No lo nger eligible based on patient's age to complete this topic RSV Immunization Patients Un bria 20 months Aged Out No longer eligible b ased on patient's age to complete this topic Varicella Vaccines Aged Out No longer eligible based on patient's age to complete this topic
--- OUTSIDE RECORDS SUMMARY | 2024-10-26 13:12 | XMS_ITS | Encounter Summary ---
Author Organization [employer] Address [address] [facility] 7t [place] [address] Care Team Providers Care Petroleum Inspector Name Role Phone Rossi Huston MD Primary Care Provider [phone] Reason for Visit * Reason Comments Diabetes fu Encounter Details Date Type Department Care Team ([facility] st Contact Info) Description 10/26/2024 10:45 AM EDT Office Visit [facility] CHC MED & PEDS [address] [place] [address] Rossi Huston MD [address] [place] [address] Type 2 diabetes mellitus without complication, without long-term current use of insulin ([facility]) (Primary Dx); Essential hypertension; Viral syndrome Social History Tobacco Use Types Packs/Day Years [...] AM EDT documented as of this encounter Last Filed Vital Signs Vital Sign Reading [...] Mass Index 23.38 10/26/2024 10:35 AM EDT documented in this encounter Progress Notes * Rossi Huston MD - 10/26/2024 10:45 AM EDT Subjective Patient ID: Katie Napier is a 74 y.o. adult who presents for Diabetes (fu). Diabetes Katie presents for Katie's follow-up diabetic visit. Katie has type 2 diabetes mellitus. Katie's disease course has been stable. Pertinent negatives for hypoglycemia include no headaches or sweats. Pertinent negatives for diabetes include no blurred vision, no chest pain, no foot ulcerations, no polydipsia, no polyphagia, no polyuria, no visual change, no weakness and no weight loss. There are no hypoglycemic complications. There are no diabetic complications. Risk factors for coronary artery disease include family history. Current diabetic treatment includes oral agent (dual therapy). Flu Symptoms This is a new problem. The current episode started yesterday. The problem occurs constantly. The problem has been unchanged. Associated symptoms include congestion, coughing, a fever and myalgias. Pertinent negatives include no chest pain, headaches, neck pain, visual change or weakness. Katie has tried nothing for the symptoms. Review of Systems Constitutional: Positive for fever. Negative for weight loss. HENT: Positive for congestion. Eyes: Negative for blurred vision. Respiratory: Positive for cough. Negative for shortness of breath. Cardiovascular: Negative for chest pain and palpitations. Gastrointestinal: Negative. Endocrine: Negative for polydipsia, polyphagia and polyuria. Genitourinary: Negative. Musculoskeletal: Positive for myalgias. Negative for neck pain. Neurological: Negative for weakness and headaches. Objective Physical Exam Constitutional: Appearance: Normal appearance. Cardiovascular: Rate and Rhythm: Normal rate and regular rhythm. Pulses: Normal pulses. Heart sounds: Normal heart sounds. Pulmonary: Effort: Pulmonary effort is normal. Abdominal: General: Abdomen is flat. Neurological: Mental Status: Katie is alert. Assessment/Plan Diagnoses and all orders for this visit: Type 2 diabetes mellitus without complication, without long-term current use of insulin ([facility]) Comments: Stable on Glipizide and Metformin Advised Low sugar and Low carb diet. Counseled regarding self-monitoring of blood glucose. Counseled re: potential co-morbidities including cardiovascular disease. Counseled re: potential co-morbidities include neuropathy and retinopathy. Counseled re: potential co-morbidities include nephropathy. Orders: - Basic Metabolic Panel; Future - Lipid Panel, Standard; Future - Hepatic Function Panel; Future - Albumin, Random Urine W/Creatinine; Future Essential hypertension Comments: Well controlled Maintain a low-sodium diet (less than 2 grams per day). Maintain a regular cardiovascular exercise program. Advised to maintain a low-fat, low-cholesterol diet. Counseled regarding importance of weight loss. Counseled re: potential co-morbidities including cardiovascular disease. Orders: - Basic Metabolic Panel; Future - Lipid Panel, Standard; Future - Hepatic Function Panel; Future - Albumin, Random Urine W/Creatinine; Future Viral syndrome pt is neg for Covid and FLU Advised steam inhaltion and warm water gargles.Supportive trt with Mucinex and warm tea documented in this encounter Plan of Treatment Scheduled Orders Name Type Priority Associated Diagnoses Orde r Schedule Basic Metabolic Panel Lab Routine Type 2 diabetes mellitus without complication, without long-term current use of insulin (CMS/HCC) Essential hypertension Expected: 10/26/2024 (Approximate), Expires: 10/26/2025 Lipid Panel, Standard Lab Routine Type 2 diabetes mellitus without complication, without long-term current use of insulin (CMS/HCC) Essential hypertension Expected: 10/26/2024 (Approximate), Expires: 10/26/2025 Hepatic Function Panel Lab Routine Type 2 diabetes mellitus without complication, without long-term current use of insulin (CMS/HCC) Essential hypertension Expected: 10/26/2024 (Approximate), Expires: 10/26/2025 Albumin, Random Urine W/Creatinine Lab Routine Type 2 diabetes mellitus without complication, without long-term current use of insulin (CMS/HCC) Essential hypertension Expected: 10/26/2024 (Approximate), Expires: 10/26/2025 documented as of this encounter Procedures Procedure [...] complication, without long-term current use of insulin (CMS/HCC) POCT GLUCOSE Routine 10/26/2024 10:45 AM EDT Type 2 diabetes mellitus without complication, without long-term current use of insulin ([facility]) documented in this encounter Results * POCT Rapid Influenza A OSOM (10/26/2024 10:54 AM EDT) [facility] Rapid Influenza A Ag Negative Negative, Indeterminate QC Media Lot # [id number] Lot# Expiration Date Swab Nasopharyngeal structure / Unknown 10/26/2024 10:54 AM EDT us Rossi Huston MD POINT OF CARE TEST ENTER/EDIT OR DERABLES Final Result * POCT Rapid Influenza B OSOM (10/26/2024 10:52 AM EDT) [facility] Rapid Influenza B Ag Negative Negative, Indeterminate QC Media Lot # [id number] Lot# Expiration Date Swab 10/26/2024 10:5 2 AM EDT us Rossi Huston MD POINT OF CARE TEST ENTER/EDIT OR DERABLES Final Result * POCT Rapid Covid-19 BinaxNOW (10/26/2024 10:50 AM EDT) [facility] Rapid COVID Ag Negative QC Media Lot # [id number] Lot# Expiration Date Swab 10/26/2024 10:5 0 AM EDT us Rossi Huston MD POINT OF CARE TEST ENTER/EDIT OR DERABLES Final Result * (ABNORMAL) POCT HGB A1C (10/26/2024 10:46 AM EDT) [facility] Hemoglobin A1C 7.7(A) 4.0 - 6.0 % QC Media Lot # [id number] Lot# Expiration Date Blood 10/26/2024 10:4 6 AM EDT Rossi Huston MD POINT OF CARE TEST ENTER/EDIT OR DERABLES Final Result * POCT Glucose (10/26/2024 10:45 AM EDT) Glucose Blood, POC 170 60 - 200 mg/dL Comment:fasting QC Media Lot # [id number] Lot# Expiration Date Blood Capillary blood specimen / Unknown 10/26/2024 10:45 AM EDT Rossi Huston MD POINT OF CARE TEST ENTER/EDIT OR DERABLES Final Result documented in this encounter Visit Diagnoses Diagnosis Type 2 diabetes mellitus without complication, without long-term current use of insulin ([facility])- Primary Essential hypertension Unspecified essential hypertension Viral syndrome Unspecified viral infection, in conditions classified elsewhere and of unspecified site documented in this encounter Additional Health Concerns Assessment Noted Time PHQ-9 Depression Total Score: 0 12/18/19 24 11:05 AM EDT documented as of this encounter Care Teams Petroleum Inspector Relationship Specialty Start Date End Date Rossi Huston MD [address] [place] [id number] PCP - General Family Medicine 08/26/13 documented as of this encounter
--- OUTSIDE RECORDS SUMMARY | 2024-10-26 13:12 | XMS_ITS | Encounter Summary ---
Author Organization [employer] Address [address] [facility] 7t [place] [address] Care Team Providers Care Locomotive Switch Operator Name Role Phone Rossi Huston MD Primary Care Provider [phone] Encounter Details Date Type Department Care Team ([facility] st Contact Info) Description 04/14/2024 Orders Only [facility] CHC MED & PEDS [address] [place] [address] Provider, MD Toni Social History Tobacco Use [...] AM EDT documented as of this encounter Miscellaneous Notes * Result Encounter Note - Rossi Huston MD - 04/14/2024 8:32 AM EDT Mammo normal documented in this encounter Plan of Treatment Not on file documented as of this encounter Procedures Procedure Name Priority Date/Time Associated Diagnosis Comments MAMMOGRAPHY Routine 04/10/2024 8:32 AM EDT documented in this encounter Results * Hm Mammography (04/10/2024 8:32 AM EDT) Anatomical Region Laterality Modality Other us Historical Provider HEALTH MAINTENANCE Final Result documented in this encounter Visit Diagnoses Not on filedocumented in this encounter Additional Health Concerns Assessment Noted Time PHQ-9 Depression Total Score: 0 12/18/19 24 11:05 AM EDT documented as of this encounter Care Teams Locomotive Switch Operator Relationship Specialty Start Date End Date Rossi Huston MD [address] [place] [id number] PCP - General Family Medicine 08/26/13 documented as of this encounter
[2024-10-26 17:28] LABS: Alanine Aminotransferase 24 U/L (0-31); Albumin Level 4.6 g/dL (3.5-5.0); Alkaline Phosphatase 77 U/L (39-117); Anion Gap 13 (12-20); Aspartate Amino Transferase 24 U/L (5-31); Bilirubin Direct 0.3 mg/dL (0.0-0.5); Bilirubin Total 0.7 mg/dL (0.0-1.0); Blood Urea Nitrogen 20 mg/dL (9-16); Calcium 9.9 mg/dL (8.4-10.2); Carbon Dioxide 26 mmol/L (22-29); Chloride 110 mmol/L (96-108); Cholesterol 117 mg/dL (<200); Estimated Glomerular Filt Rate 58; Glucose Random 152 mg/dL (60-115); HDL Cholesterol 43 mg/dL (>40); LDL Cholesterol Calculated 55 mg/dL (<100); Potassium 4.5 mmol/L (3.3-5.1); Sodium 144 mmol/L (135-145); Total Protein 7.8 g/dL (6.5-8.0); Triglycerides 97 mg/dL (<150)
== END 2024-10-26 10:58 | disposition home or self-care (01) ==
LOC: HO.CHCLDS 10:57
PROVIDERS: Visit Provider Student in an Organized Health Care Education/Training Program
DX: E11.9 Type 2 diabetes mellitus without complications (principal); I10 Essential (primary) hypertension
CPT/HCPCS: 36415; 80048; 80061; 80076

== ENCOUNTER 2025-04-11 09:37 | Outpatient (AMB) | payer OTHER, SELFPAY ==
--- NOTE | 2025-04-11 09:38 | A.OFFVIS_ITS ---
Vital Signs 04/11/25 09:43 Height 5 ft 5 in Weight 136 lb BMI 22.6 BP 136/60 Blood Pressure Location Rt brachial Position Sitting Pulse 82 Intake Visit Reasons: year follow up rectal cancer Intake Note: Patient here today for yearly follow up visit. Hx of anal, squamous cell carcinoma. Patient c/o: denies rectal bleeding. Reports normal bm. Professor Of Environmental Studies Required: Yes Information Interpreted: clinical only (Maddie # [id number]) Accompanied by: Self / Same As Patient Allergies No Known Allergies (No Known Allergies*) Allergy (Verified 09/28/24 09:06) HPI HPI year follow up rectal cancer: Details: 73-year-old female here for a follow-up for squamous cell carcinoma of the anus. She had been diagnosed in 2014 and had undergone chemotherapy and radiation with very good response. She has had anoscopy in the office every year this had been unremarkable. She denies any significant complaints at this time. She denies passage of blood per rectum. She denies any pain in the anus. She says she feels well overall. [facility] Medical History History of anal cancer Colon cancer screening Anal squamous cell carcinoma Anemia Diabetes High cholesterol HTN (hypertension) Surgical History Hx of cataract extraction History of colonoscopy (~11/15/22) Hx of excision of mass Hx of biopsy History of colon surgery Family History Father Liver cancer Social History Household Members: Spouse Housing: Apartment Are you a primary direct care supervisor to a significant other at home: No Do you presently have visiting nurse or other home services: No Alcohol intake: former Patient Tobacco Use Status: Never used Tobacco service: No Current occupational status: disabled Review of Systems Const Denies chills and Denies fever(s) Card Denies chest pain, Denies dyspnea and Denies dyspnea on exertion Resp Denies cough, Denies dyspnea and Denies dyspnea on exertion GI Denies hematochezia and Denies change in bowel habits Denies hematuria Musc Denies back pain and Denies limited range of motion Neuro Denies focal weakness and Denies convulsions Psych Denies depression and Denies mood swings Physical Exam Const General: comfortable and no acute distress Orientation/consciousness: patient oriented x3 Neck Neck: Yes no lymphadenopathy Resp Auscultation: clear to auscultation bilaterally Cardio Rhythm: regular rhythm GI Other: Rectal exam does not suggest any perianal lesion. There is note of telangiectatic changes from her previous surgery Palpation (GI): Soft to palpation, nontender and no guarding Neuro General: patient oriented x3 Office Procedures Anoscopy She was in kneeling andrzej-knife position. The anoscope was gently inserted a full examination of the entire anal canal was done.There were no lesions seen. There was no fissure or ulceration. There was some telangiectatic changes in the perianal skin. There is no induration on digital exam. There was no bleeding. [id number] Assessment & Plan Assessment & Plan (1) History of anal cancer: Code(s): Z85.048 - Personal history of other malignant neoplasm of rectum, rectosigmoid junction, and anus Category: Medical Plan: She is doing very well 10 years after her treatment. His exam including anoscopy does not suggest any recurrence. I will see her again in the office in 1 year. She understands the plan well. Coding Level of Care Code Est Pt Level 3 (98705) Diagnoses History of anal cancer Z85.048 CPT Codes Details - CPT: 10344-Eicssuru ([id number])
[2025-04-11 09:43] VITALS: BP 136/60; PULSE 82; BMI 22.6
--- OUTSIDE RECORDS SUMMARY | 2025-04-11 11:37 | XMS_ITS | Encounter Summary ---
Author Organization [employer] Address [address] [facility] 7t [place] [address] Care Team Providers Care Heavy Equipment Service Manager Name Role Phone Rossi Huston MD Primary Care Provider [phone] Reason for Visit * Reason Comments Med Refill Encounter Details Date Type Department Care Team ([facility] st Contact Info) Description 11/29/2024 Refill [facility] CHC MED & PEDS [address] [place] [address] Rossi Huston MD [address] [place] [address] Social History Tobacco Use Types Packs/Day Years [...] as of this encounter Plan of Treatment Upcoming Encounters Date Type Department Care Team (Late st Contact Info) Description 04/28/2025 11:15 AM EDT Office Visit [facility] CHC MED & PEDS [address] [place] [address] Rossi Huston MD [address] [place] [address] documented as of this encounter Visit Diagnoses Not on filedocumented in this encounter Additional Health Concerns Assessment Noted Time PHQ-9 Depression Total Score: 0 12/18/19 24 11:05 AM EDT documented as of this encounter Care Teams Heavy Equipment Service Manager Relationship Specialty Start Date End Date Rossi Huston MD [address] [place] [address] PCP - General Family Medicine 08/26/13 documented as of this encounter
--- OUTSIDE RECORDS SUMMARY | 2025-04-11 11:37 | XMS_ITS | Encounter Summary ---
Author Organization [employer] Address [address] [facility] 7t [place] [address] Care Team Providers Care Knifeman Name Role Phone Rossi Huston MD Primary Care Provider [phone] Encounter Details Date Type Department Care Team (Late st Contact Info) Description 11/15/2022 Orders Only [facility] MED & PEDS [address] [place] [address] Ly Keane LPN Social History Tobacco Use [...] Description 04/28/2025 11:15 AM EDT Office Visit [facility] MED & PEDS [address] [place] [address] Rossi Huston MD [address] [place] [address] documented as of this encounter Visit Diagnoses Not on filedocumented in this encounter Care Teams Knifeman Relationship Specialty Start Date End Date Rossi Huston MD [address] [place] [id number] PCP - General Family Medicine 08/26/13 documented as of this encounter
--- OUTSIDE RECORDS SUMMARY | 2025-04-11 11:37 | XMS_ITS | Encounter Summary ---
Author Organization [employer] Address [address] [facility] 7t [place] [address] Care Team Providers Care Wire Wrapper Machine Operator Name Role Phone Rossi Huston MD Primary Care Provider [phone] Reason for Visit * Reason Comments Med Refill Encounter Details Date Type Department Care Team ([facility] Contact Info) Description 05/03/2023 Refill [facility] MED & PEDS [address] [place], [place] [phone] Rossi Huston MD [address] [place], [place] [phone] Social History Tobacco Use Types Packs/Day Years [...] Encounters Date Type Department Care Team (Late Contact Info) Description 04/28/2025 11:15 AM EDT Office Visit [facility] CHC MED & PEDS [address] [place] [address] Rossi Huston MD [address] [place], [place] [phone] documented as of this encounter Visit Diagnoses Not on filedocumented in this encounter Care Teams Wire Wrapper Machine Operator Relationship Specialty Start Date End Date Rossi Huston MD [address] [place] [phone] PCP - General Family Medicine 08/26/13 documented as of this encounter
--- OUTSIDE RECORDS SUMMARY | 2025-04-11 11:37 | XMS_ITS | Clinical Summary ---
Author Organization [employer] Address [address] [facility] 7t [place] [address] Care Team Providers Care Editing Internship Name Role Phone Rossi Huston MD Primary Care Provider [phone] Allergies No known active allergies Medications TRUEplus Lancets 33G misc TEST BLOOD SUGAR TWICE DAILY 03/19/2023 Active metFORMIN (Glucophage) 1000 MG tablet Take 1 tablet by mouth every 12 (twelve) hours. 01/03/2022 Active polyvinyl alcohol (Liquifilm Tears) 1.4 % ophthalmic solution PLACE ONE DROP IN EACH EYE FOUR TIMES DAILY 10/07/2023 Active meclizine (Antivert) 25 MG tablet Take 1 tablet by mouth every 8 (eight) hours. Active atorvastatin (Lipitor) 10 MG tablet TAKE ONE TABLET EVERY NIGHT AT BEDTIME 90 tablet 3 07/02/2024 Active lisinopril 20 MG tablet Take 1 tablet (20 mg) by mouth in the morning. 90 tablet 3 07/05/2024 5 Active glipiZIDE (Glucotrol) 10 MG tablet TAKE ONE TABLET BY MOUTH IN THE MORNING AND EVENING 180 tablet 4 07/05/2024 Active FREESTYLE LITE test strip TEST BLOOD SUGAR TWICE DAILY 100 strip 5 10/11/2024 Active Easy Touch Lancets 33G/Twist misc TEST BLOOD SUGAR TWICE DAILY 100 each 3 10/11/2024 6 Active Calcium Carb-Cholecalci ferol 500-10 MG-MCG chewable tablet CHEW ONE TABLET EVERY MORNING WITH FOOD 30 tablet 11 10/26/2024 Active Dextromethorpha n-guaiFENesin (Mucinex DM) 30-600 MG tablet sustained-relea se 12 hour Use 1 tab TID 28 tablet 10/26/2024 Active Ferrous Sulfate (iron) 325 (65 Fe) MG tablet Take 1 tablet (325 mg) by mouth in the morning. 30 tablet 4 11/30/2024 Active Farxiga 5 MG TAKE ONE TABLET EVERY MORNING 30 tablet 11 12/24/2024 Active Active Problems Problem Noted Date Diagnosed Date Type 2 diabetes mellitus wit hout complication, without long-term current use of insulin 05/22/2023 Anal squamous cell carcinoma 05/22/2023 Essential hypertension 05/25/2014 3 Immunizations Immunization Administration Dates Next Due Influenza High-dose Quadriva [...] 70 10/26/2024 10:35 AM EDT Temperature 36.5 C (97.7 F) 10/26/2024 10:35 AM EDT Respiratory Rate 20 10/26/2024 10:35 AM EDT Oxygen Saturation 97% 10/26/2024 10:35 AM EDT Inhaled Oxygen Concentration - - Weight 59.9 kg (132 lb) 10/26/2024 10:35 AM EDT Height 160 cm (5' 3 ) 10/26/2024 10:35 AM EDT Body Mass Index 23.38 10/26/2024 10:35 AM EDT Plan of Treatment Upcoming Encounters Date Type Department Care Team (Late st Contact Info) Description 04/28/2025 11:15 AM EDT Office Visit [facility] CHC MED & PEDS [address] [place] [address] Rossi Huston MD [address] [place] [address] Health Maintenance Due Date Last Done Comments CT Colonography 1950 FIT DNA/Cologuard 1950 FIT 1950 FOBT 1950 Sigmoidoscopy 1950 Eye Exam 1960 Alcohol/Substance Use Screening 1962 Hepatitis C Screening 1968 Diabetes: Foot Exam 05/22/2024 05/22/2023, 05/22/2023, 05/22/2023, Additional history exists Diabetes: Urine Protein Screening 05/22/2024 05/22/2023, 01/01/2022, 01/17/2021 Colonoscopy 12/09/2024 Colorectal Cancer Screening 12/09/2024 Depression Screening 12/17/2024 12/18/2023, 12/18/19 Diabetes: Hemoglobin A1C 01/25/2025 025, 04/27/2024, 12/23/2023, Additional history exists COVID-19 Vaccine ( season) 2025 08/07/2021, 11/10/2020, 10/13/2020 Influenza Vaccine (#1) 2025 , 05/14/2023, 05/30/2022, Additional history exists Mammogram 04/10/2025 04/10/2024 RSV Patients and Patients Aged 60 years or older (1 - 1-dose 75+ series) 2025 Lipid Panel 10/26/2025 10/26/2024, 11/26, 05/22/2023, Additional history exists SDOH Screening 10/26/2025 10/26/2024 Tobacco Screening 10/26/2025 10/26/2024 DTaP/Tdap/Td Vaccines (3 - Td or Tdap) 05/14/2033 05/14/2023, 10/27/2012 Pneumococcal Vaccine: 50+ Years Completed 08/25/2019, 06/04/2016, 05/01/2015, Additional history exists Zoster Vaccines Completed 09/18/2021, 07/13/2021 HIB Vaccines Aged Out No longer eligi [...] age to complete this topic Meningococcal B Vaccine Aged Out No l onger eligible based on patient's age to complete [...] Procedure Name Priority Date/Time Associated Diagnosis Comments LIPID PANEL, STANDARD Routine 10/26/2024 10:58 AM EDT Type 2 diabetes mellitus without complication, without long-term current use of insulin ([facility]) Essential hypertension POCT GLYCATED HEMOGLOBIN, TOTAL Routine 10/26/2024 10:46 AM EDT Type 2 diabetes mellitus without complication, without long-term current use of insulin ([facility]) HM MAMMOGRAPHY Routine 04/10/2024 8:32 AM EDT ALBUMIN, RANDOM URINE W/CREATININE Routine 05/22/2023 11:40 AM EDT from Last 3 Months or Most Recently Relevant to Health Maintenance Results * Lipid Panel, Standard (10/26/2024 10:58 AM EDT) Triglycerides 97 <150 mg/dL [facility] Comment:Desirable Triglyceri de: less than 150 mg/dLBorderline High Triglyceride 150-199 mg/dLHigh Triglyceride: 200-499 mg/dLVery High Triglyceride: greater than or equal to 5OO mg/dL Cholesterol 117 <200 mg/dL [facility] Comment:Desirable Cholestero l: less than 200 mg/dLBorderline High Cholesterol: 200-239 mg/dLHigh Cholesterol: greater than 239 mg/dL LDL Cholesterol Calculated 55 <100 mg/dL [facility] Comment:Desirable LDL: less than 100 mg/dLNear Optimal/Above Optimal LDL: 110- 129 mg/dLBorderline High LDL: 130-159 mg/dLHigh LDL: 160-189 mg/dLVery High LDL: greater than or equal to 190 mg/dL HDL Cholesterol 43 >40 mg/dL [facility] Comment:Desirable HDL: great er than 40 mg/dL Note: This HDL assay may give artificially low results in patients with liver disease. Blood Venous blood specimen / Unknown 10/26/2024 10:58 AM EDT 10/26/2024 2:43 PM EDT Rossi Huston MD LAB BLOOD ORDERABLES Final Resul t [facility] [address] [place] [phone] * (ABNORMAL) POCT HGB A1C (10/26/2024 10:46 AM EDT) Hemoglobin A1C 7.7(A) 4.0 - 6.0 % QC Media Lot # [id number] Lot# Expiration Date Blood 10/26/2024 10:4 6 AM EDT Rossi Huston MD POINT OF CARE TEST ENTER/EDIT OR DERABLES Final Result * Hm Mammography (04/10/2024 8:32 AM EDT) Anatomical Region Laterality Modality Other Toni Khanna MD HEALTH MAINTENANCE Final Result * Albumin, Random Urine W/Creatinine (05/22/2023 11:40 AM EDT) Creatinine, Urine 263.29 mg/dL [facility] Microalbumin Urine 36.0 mg/L H [facility] Microalbum Creatinine Ratio Ur 13.6 <30 ug/mg cr [facility] Comment:Albumin/Creatinine R atio Reference Ranges: Normal: < 30 ug/mg creatinine Microalbuminuria: 30 - 300 ug/mg creatinineClinical Albuminuria: > 300 ug/mg creatinine 05/22/2023 11:4 0 AM EDT 05/22/2023 2:28 PM EDT us Rossi Huston MD LAB URINE ORDERABLES Final Resul t [facility] [address] [place] [address] [phone] from Last 3 Months or Most Recently Relevant to Health Maintenance Insurance SAMARA RAMIREZ [id number] * Guarantor: Katie Alexander Account Type Relation to Patient Date of Phone Billing Address Personal/Family [facility] [address] [facility] [facility] Care Teams Editing Internship Relationship Specialty Start Date End Date Rossi Huston MD [address] [place] [address] PCP - General Family Medicine 08/26/13
--- OUTSIDE RECORDS SUMMARY | 2025-04-11 11:37 | XMS_ITS | Encounter Summary ---
Author Organization [employer] Address [address] [facility] 7 [place] [address] Care Team Providers Care Knit Goods Press Hand Name Role Phone Rossi Huston MD Primary Care Provider [phone] Reason for Visit * Reason Comments Med Refill Encounter Details Date Type Department Care Team (Late Contact Info) Description 05/08/2023 Refill [facility] MED & PEDS [address] [place], [place] [phone] Gerber Tello MD [address] [place], [place] [phone] Social History Tobacco Use Types Packs/Day Years [...] Description 04/28/2025 11:15 AM EDT Office Visit [facility]C MED & PEDS [address] [place], [place] [phone] Rossi Huston MD [address] [place], [place] [phone] documented as of this encounter Visit Diagnoses Not on filedocumented in this encounter Care Teams Knit Goods Press Hand Relationship Specialty Start Date End Date Rossi Huston MD [address] [place] [id number] PCP - General Family Medicine 08/26/13 documented as of this encounter
--- OUTSIDE RECORDS SUMMARY | 2025-04-11 11:38 | XMS_ITS | Encounter Summary ---
Author Organization [employer] Address [address] [facility] [address]t [place] [address] Care Team Providers Care Thermal Technician Name Role Phone Rossi Huston MD Primary Care Provider [phone] Encounter Details Date Type Department Care Team ([facility] st Contact Info) Description 09/30/2024 Orders Only [facility] CHC MED & PEDS [address] [place] [address] ProviderToni MD Social History Tobacco Use Types Packs/Day Years [...] Description 04/28/2025 11:15 AM EDT Office Visit [facility] MED & PEDS [address] [place] [address] Rossi Huston MD [address] [place] [address] documented as of this encounter Procedures Procedure [...] documented as of this encounter Care Teams Thermal Technician Relationship Specialty Start Date End Date Rossi Huston MD [address] [place] [address] PCP - General Family Medicine 08/26/13 documented as of this encounter
--- OUTSIDE RECORDS SUMMARY | 2025-04-11 11:38 | XMS_ITS | Encounter Summary ---
Author Organization [employer] Address [address] [facility] 7t [place] [address] Care Team Providers Care Chief Operator Synthesis Name Role Phone Rossi Huston MD Primary Care Provider [phone] Reason for Visit * Reason Comments Med Refill Encounter Details Date Type Department Care Team ([facility] st Contact Info) Description 08/19/2023 Refill [facility] MED & PEDS [address] [place] [address] Rossi Huston MD [address] [place] [address] Social History Tobacco Use Types Packs/Day Years [...] Upcoming Encounters Date Type Department Care Team ([facility] st Contact Info) Description 04/28/2025 11:15 AM EDT Office Visit [facility]C MED & PEDS [address] [place] [address] Rossi Huston MD [address] [place] [address] documented as of this encounter Visit Diagnoses Not on filedocumented in this encounter Additional Health Concerns Assessment Noted Time PHQ-9 Depression Total Score: 0 05/22/20 23 10:44 AM EDT documented as of this encounter Care Teams Chief Operator Synthesis Relationship Specialty Start Date End Date Rossi Huston MD [address] [place] [phone] PCP - General Family Medicine 08/26/13 documented as of this encounter
--- OUTSIDE RECORDS SUMMARY | 2025-04-11 11:38 | XMS_ITS | Encounter Summary ---
Author Organization [employer] Address [address] [facility] 7t [place] [address] Care Team Providers Care Ergonomics Consultant Name Role Phone Rossi Huston MD Primary Care Provider [phone] Encounter Details Date Type Department Care Team ([facility] st Contact Info) Description 04/14/2024 Orders Only [facility] CHC MED & PEDS [address] [place] [address] ProviderToni MD Social History Tobacco Use Types [...] documented in this encounter Plan of Treatment Upcoming Encounters Date Type Department Care Team (Late st Contact Info) Description 04/28/2025 11:15 AM EDT Office Visit [facility] MED & PEDS [address] [place], [place] [phone] Rossi Huston MD [address] [place] [address] documented as of this encounter Procedures Procedure Name Priority Date/Time Associated Diagnosis Comments HM MAMMOGRAPHY Routine 04/10/2024 8:32 AM EDT documented [...] documented as of this encounter Care Teams Ergonomics Consultant Relationship Specialty Start Date End Date Rossi Huston MD [address] [place] [id number] PCP - General Family Medicine 08/26/13 documented as of this encounter
--- OUTSIDE RECORDS SUMMARY | 2025-04-11 11:38 | XMS_ITS | Clinical Summary ---
Author Organization [employer] [facility] ity Address [address] [place] [address] Care Team Providers Care Coding Consultant Name Role Phone Unavailable Primary Care Provider [...] 2000 Zoster Vaccines (1 of 2) 2000 Depression Screening 07/28/2024 COVID-19 Vaccine (1 - 2023-2 5 season) 2025 Influenza Vaccine (#1) 2025 RSV Immunization Adult Patie nts (1 - 1-dose 75+ series) 2025 HIB [...]
== END 2025-04-11 09:52 | disposition home or self-care (01) ==
LOC: HO.HGS 09:37
PROVIDERS: PCP Student in an Organized Health Care Education/Training Program; Visit Provider Surgery
DX: Z85.048 Personal history of other malignant neoplasm of rectum, rectosigmoid junction, and anus (principal)
CPT/HCPCS: 46600; 99213

== ENCOUNTER → 2025-04-11 09:37 | Outpatient (BNVA) | payer OTHER, SELFPAY | PROVIDERS: PCP Student in an Organized Health Care Education/Training Program; Visit Provider Surgery | DX: Z85.048 Personal history of other malignant neoplasm of rectum, rectosigmoid junction, and anus (principal) | CPT/HCPCS: 46600; 99212 ==

== ENCOUNTER 2025-04-28 11:16 | Outpatient (REF) | payer OTHER, SELFPAY ==
--- OUTSIDE RECORDS SUMMARY | 2025-04-28 11:15 | XMS_ITS | Encounter Summary ---
Author Organization [employer] Address [address] [facility] 7t [place] [address] Care Team Providers Care Abstracter Name Role Phone Rossi Huston MD Primary Care Provider [phone] Reason for Visit * Reason Comments Diabetes Encounter Details Date Type Department Care Team ([facility] st Contact Info) Description 04/28/2025 11:15 AM EDT Office Visit [facility] MED [facility] PEDS [address] [place] [address] Rossi Huston MD [address] [place] [address] Type 2 diabetes mellitus without complication, without long-term current use of insulin (HCC) (Primary Dx); Essential hypertension; Encounter for immunization; Encounter for vaccination Social History Tobacco Use Types Packs/Day Years [...] Date Recorded Patient Health Questionnaire-9 Score 0 04/28/2025 Patient Health Questionnaire-9 Score 0 04/28/2025 Last PHQ-9: Questionnaire Data Not on file [...] the past 12 months, has t he [employer], gas, oil or water company threatened to shut off services in your home? No 05/22/2023 Depression Answer Date Recorded Patient Health Questionnaire-2 Score 0 04/28/2025 Internet Access Answer Date Recorded Internet Access [...] Sign Reading Time Taken Comments Blood Pressure 148/69 04/28/2025 11:00 AM EDT Pulse 61 04/28/2025 11:00 AM EDT Temperature 36.2 C (97.1 F) 04/28/2025 11:00 AM EDT Respiratory Rate 18 04/28/2025 11:00 AM EDT Oxygen Saturation - - Inhaled Oxygen Concentration - - Weight 60.3 kg (133 lb) 04/28/2025 11:00 AM EDT Height 160 cm (5' 3 ) 04/28/2025 11:00 AM EDT Body Mass Index 23.56 04/28/2025 11:00 AM EDT documented in this encounter Functional Status * Over the past 2 weeks, how often have you been bothered by any of the following problems? Question Answer Date of Assessment Author Patient Health Questionnaire -2 Score 0 04/28/2025 11:06 AM EDT Queta Lisa MA * Little interest or pleasure in doing things Answer Date of Assessment Author Not at all 04/28/2025 11:06 AM Eloisa Garrison MA * Feeling down, depressed, or hopeless Answer Date of Assessment Author Not at all 04/28/2025 11:06 AM Eloisa Garrison MA * Trouble falling or staying asleep, or sleeping too much Answer Date of Assessment Author Not at all 04/28/2025 11:06 AM Eloisa Garrison MA * Feeling tired or having little energy Answer Date of Assessment Author Not at all 04/28/2025 11:06 AM Eloisa Garrison MA * Poor appetite or overeating Answer Date of Assessment Author Not at all 04/28/2025 11:06 AM Eloisa Garrison MA * Feeling bad about yourself - or that you are a failure or have let yourself or your family down Answer Date of Assessment Author Not at all 04/28/2025 11:06 AM Eloisa Garrison MA * Trouble concentrating on things, such as reading the newspaper or watching television Answer Date of Assessment Author Not at all 04/28/2025 11:06 AM Eloisa Garrison MA * Moving or speaking so slowly that other people could have noticed? Or the opposite - being so fidgety or restless that you have been moving around a lot more than usual. Answer Date of Assessment Author Not at all 04/28/2025 11:06 AM Eloisa Garrison MA * Thoughts that you would be better off or hurting yourself in some way Answer Date of Assessment Author Not at all 04/28/2025 11:06 AM Eloisa Garrison MA * Patient Health Questionnaire-9 Score Answer Date of Assessment Author 0 04/28/2025 11:06 AM Eloisa Garrison MA documented as of this encounter Progress Notes * Rossi Huston MD - 04/28/2025 11:15 AM EDT Subjective Patient ID: Katie Napier is a 74 y.o. adult who presents for Diabetes. Diabetes Katie presents for Katie's follow-up diabetic visit. Katie has type 2 diabetes mellitus. Katie's disease course has been stable. There are no hypoglycemic associated symptoms. Pertinent negatives for hypoglycemia include no headaches or sweats. There are no diabetic associated symptoms.Pertinent negatives for diabetes include no blurred vision and no chest pain. There are no hypoglycemic complications. Symptoms are stable. There are no diabetic complications. Risk factors for coronary artery disease include sedentary lifestyle and family history. Review of Systems Constitutional: Negative. Eyes: Negative for blurred vision. Respiratory: Negative. Negative for shortness of breath. Cardiovascular: Negative for chest pain and palpitations. Gastrointestinal: Negative. Genitourinary: Negative. Musculoskeletal: Negative for neck pain. Neurological: Negative for headaches. Objective Physical Exam Constitutional: General: Katie is not in acute distress. Appearance: Normal appearance. Katie is normal weight. HENT: Head: Normocephalic. Nose: Nose normal. Mouth/Throat: Mouth: Mucous membranes are moist. Comments: Has braces Eyes: Extraocular Movements: Extraocular movements intact. Pupils: Pupils are equal, round, and reactive to light. Cardiovascular: Rate and Rhythm: Normal rate and regular rhythm. Pulses: Dorsalis pedis pulses are 2+ on the right side and 2+ on the left side. Posterior tibial pulses are 2+ on the right side and 2+ on the left side. Heart sounds: Normal heart sounds. No murmur heard. Pulmonary: Effort: Pulmonary effort is normal. Breath sounds: Normal breath sounds. Abdominal: General: Bowel sounds are normal. There is no distension. Palpations: Abdomen is soft. There is no mass. Tenderness: There is no abdominal tenderness. There is no guarding. Musculoskeletal: General: Normal range of motion. Right lower leg: No edema. Left lower leg: No edema. Right foot: Normal range of motion. No deformity, bunion, Charcot foot or prominent metatarsal heads. Left foot: Normal range of motion. No deformity, bunion, Charcot foot or prominent metatarsal heads. Feet: Right foot: Protective Sensation: 7 sites tested. 7 sites sensed. Skin integrity: Skin integrity normal. No ulcer, blister, skin breakdown, erythema, warmth, callus or dry skin. Toenail Condition: Right toenails are normal. Left foot: Protective Sensation: 7 sites tested. 7 sites sensed. Skin integrity: Skin integrity normal. No ulcer, blister, skin breakdown, erythema, warmth, callus or dry skin. Toenail Condition: Left toenails are normal. Skin: Capillary Refill: Capillary refill takes less than 2 seconds. Findings: No rash. Neurological: General: No focal deficit present. Mental Status: Katie is alert and oriented to person, place, and time. Psychiatric: Mood and Affect: Mood normal. Behavior: Behavior normal. Assessment/Plan Diagnoses and all orders for this visit: Type 2 diabetes mellitus without complication, without long-term current use of insulin (HCC) Comments: Well controlled No changes in meds Cont Meformin ,Glipizide and Farxiga Advised Low sugar and Low carb diet. Counseled regarding self-monitoring of blood glucose. Counseled re: potential co-morbidities including cardiovascular disease. Counseled re: potential co-morbidities include neuropathy and retinopathy. Counseled re: potential co-morbidities include nephropathy. Orders: - POCT Glucose - POCT Hgb A1c - Basic Metabolic Panel; Future - Lipid Panel, Standard; Future - Hepatic Function Panel; Future - Albumin, Random Urine W/Creatinine; Future Essential hypertension Comments: Well controlled Maintain a low-sodium diet (less than 2 grams per day). Maintain a regular cardiovascular exercise program. Advised to maintain a low-fat, low-cholesterol diet. Counseled regarding importance of weight loss. Counseled re: potential co-morbidities including cardiovascular disease. Encounter for immunization - FLU VACCINE TRIVALENT HIGH DOSE [id number] (Fluzone) 65 yrs + Encounter for vaccination - COVID-19 VACCINE [id number] (Comirnaty) 12 yrs + documented in this encounter Plan of Treatment Scheduled Orders Name Type Priority Associated Diagnoses Orde r Schedule Basic Metabolic Panel Lab Routine Type 2 diabetes mellitus without complication, without long-term current use of insulin (CMS/HCC) Expected: 04/28/2025 (Approximate), Expires: 04/28/2026 Lipid Panel, Standard Lab Routine Type 2 diabetes mellitus without complication, without long-term current use of insulin (CMS/HCC) Expected: 04/28/2025 (Approximate), Expires: 04/28/2026 Hepatic Function Panel Lab Routine Type 2 diabetes mellitus without complication, without long-term current use of insulin (CMS/HCC) Expected: 04/28/2025 (Approximate), Expires: 04/28/2026 Albumin, Random Urine W/Creatinine Lab Routine Type 2 diabetes mellitus without complication, without long-term current use of insulin ([facility]) Expected: 04/28/2025 (Approximate), Expires: 04/28/2026 documented as of this encounter Procedures Procedure Name Priority Date/Time Associated Diagnosis Comments POCT GLYCATED HEMOGLOBIN, TOTAL Routine 04/28/2025 11:03 AM EDT Type 2 diabetes mellitus without complication, without long-term current use of insulin ([facility]) POCT GLUCOSE Routine 04/28/2025 11:02 AM EDT Type 2 diabetes mellitus without complication, without long-term current use of insulin ([facility]) documented in this encounter Results * (ABNORMAL) POCT Hgb A1c (04/28/2025 11:03 AM EDT) Hemoglobin A1C 7.7(A) 4.0 - 5.7 % QC Media Lot # [id number] Lot# Expiration Date 158,[id number] Blood 04/28/2025 11:0 3 AM EDT us Rossi Huston MD POINT OF CARE TEST ENTER/EDIT OR DERABLES Final Result * (ABNORMAL) POCT Glucose (04/28/2025 11:02 AM EDT) Glucose Blood, POC 150(A) 60 - 200 mg/dL QC [employer] [facility] Lot # [id number] Lot# Expiration Date 74,[id number] Blood Capillary blood specimen / Unknown 04/28/2025 11:02 AM EDT us Rossi Huston MD POINT OF CARE TEST ENTER/EDIT OR DERABLES Final Result documented in this encounter Visit Diagnoses Diagnosis Type 2 diabetes mellitus without complication, without long-term current use of insulin ([facility])- Primary Essential hypertension Unspecified essential hypertension Encounter for immunization Encounter for vaccination documented in this encounter Additional Health Concerns Assessment Noted Time PHQ-9 Depression Total Score: 0 04/28/20 25 11:06 AM EDT documented as of this encounter Care Teams Abstracter Relationship Specialty Start Date End Date Rossi Huston MD [address] [place] [id number] PCP - General Family Medicine 08/26/13 documented as of this encounter
--- OUTSIDE RECORDS SUMMARY | 2025-04-28 13:11 | XMS_ITS | Encounter Summary ---
Author Organization [employer] Address [address] [facility] 7t [place] [address] Care Team Providers Care Lead Furnace Operator Name Role Phone Rossi Huston MD Primary Care Provider [phone] Encounter Details Date Type Department Care Team ([facility] st Contact Info) Description 04/14/2024 Orders Only [facility] MED & PEDS [address] [place] [address] ProviderToni MD Social History Tobacco Use Types [...] Other Historical Provider HEALTH MAINTENANCE Final Result documented in this encounter Visit Diagnoses Not on filedocumented in this encounter Additional Health Concerns Assessment Noted Time PHQ-9 Depression Total Score: 0 12/18/19 24 11:05 AM EDT documented as of this encounter Care Teams Lead Furnace Operator Relationship Specialty Start Date End Date Rossi Huston MD [address] [place] [phone] PCP - General Family Medicine 08/26/13 documented as of this encounter
--- OUTSIDE RECORDS SUMMARY | 2025-04-28 13:11 | XMS_ITS | Clinical Summary ---
Author Organization [employer] Address [address] [facility] 7[address] [place] [address] Care Team Providers Care Clicking Machine Operator Name Role Phone Rossi Huston MD Primary Care Provider [phone] Allergies No known active allergies Medications TRUEplus Lancets 33G misc TEST BLOOD SUGAR TWICE DAILY 3 Active metFORMIN (Glucophage) 1000 MG tablet Take [...] 1 tab TID 28 tablet 5 Active Farxiga 5 MG TAKE ONE TABLET EVERY MORNING 30 tablet 11 5 Active Ferrous Sulfate (iron) 325 (65 Fe) MG tablet TAKE ONE TABLET EVERY MORNING 30 tablet 4 5 Active Ferrous Sulfate (iron) 325 (65 Fe) MG tablet Take 1 tablet (325 mg) by mouth in the morning. 30 tablet 4 5 04/28/20 25 Discontinued Active Problems Problem Noted Date Diagnosed Date Type 2 diabetes mellitus wit hout complication, without long-term current use of insulin 05/22/2023 Anal squamous cell carcinoma (CMS/HCC) 3 05/22/2023 Essential hypertension 05/25/2014 3 Encounters Date Type Department Care Team Description 04/28/2025 11:15 AM EDT Office Visit [facility] MED & PEDS [address] [place] [address] Rossi Huston MD Type 2 diabetes mellitus without complication, without long-term current use of insulin (HCC) (Primary Dx); Essential hypertension; Encounter for immunization; Encounter for vaccination 04/28/2025 Travel 04/27/2025 Refill [facility] [address] [place] [address] Rossi Huston MD 04/27/2025 Telephone [facility] [address] [place] [address] Rossi Huston MD Chart Prep 04/15/2025 Orders Only [facility] MED & P[facility] [address] [place] [address] ProviderToni MD from Last 3 Months Immunizations Immunization Administration Dates Next Due Influenza High-dose Quadriva lent Preservative Free 05/14/2023,05/30/2022,06/01/2020 Influenza Injectable Quadriv alant Preservative Free IIV4 MDCK 07/13/2021 Influenza Whole 10/25/2009,07/04/2006 Influenza injectable quadriv alent IIV4 with preservative 05/06/2018,05/26/2017,06/04/2016 Influenza, High Dose Seasona l, Preservative Free 04/28/2025,04/27/2024,08/25/2019 Influenza, IIV3, injectable 05/25/2014,1 ,08/19/2008,06/16 Influenza, Injectable, MDCK, preservative free 05/01/2015 Influenza, Split (incl. david fied surface antigen) 05/21/2013,07/09/2012 Pfizer Covid-19 Vaccine 12+ 04/28/2025 Pneumococcal Conjugate PCV 13 06/04/2016 Pneumococcal Polysaccharide PPSV23 08/25,05/01/2015,10/27/2012,07/03 Tdap 05/14/2023,10/27/2012,08/19/2008 Zoster, Recombinant 09/18/2021,07/13/2021 Social History Tobacco Use [...] 18 04/28/2025 11:00 AM EDT Oxygen Saturation 97% 10/26/2024 10:35 AM EDT Inhaled Oxygen Concentration - - Weight 60.3 kg (133 lb) 04/28/2025 11:00 AM EDT Height 160 cm (5' 3 ) 04/28/2025 11:00 AM EDT Body Mass Index 23.56 04/28/2025 11:00 AM EDT Plan of Treatment Health Maintenance Due Date Last Done Comments CT Colonography 1950 FIT DNA/Cologuard 1950 FIT 1950 FOBT 1950 Sigmoidoscopy 1950 Eye Exam 1960 Hepatitis C Screening 1968 Diabetes: Foot Exam 05/22/2024 04/28/2025, 04/28/2025, 04/28/2025, Additional history exists Diabetes: Urine Protein Screening 05/22/2024 05/22/2023, 01/01/2022, 01/17/2021 Colonoscopy 12/09/2024 Colorectal Cancer Screening 12/09/2024 Diabetes: Hemoglobin A1C 07/29/2025 025, 10/26/2024, 04/27/2024, Additional history exists RSV Patients and Patients Aged 60 years or older (1 - 1-dose 75+ series) 2025 Lipid Panel 10/26/2025 10/26/2024, 05/2 02/2024, 05/22/2023, Additional history exists SDOH Screening 10/26/2025 10/26/2024 Tobacco Screening 10/26/2025 10/26/2024 COVID-19 Vaccine ( season) 2025 04/28/2025, 08/07/2021, 11/10/2020, Additional history exists Mammogram 04/14/2026 04/14/2025, 04/10/2024 Alcohol/Substance Use Screening 04/28/2026 04/28/2025 Depression Screening 04/28/2026 04/28/2025, 04/28/20 DTaP/Tdap/Td Vaccines (4 - Td or Tdap) 05/14/2033 05/14/2023, 10/27/2012, 08/19/2008 Pneumococcal Vaccine: 50+ Years Completed 08/25/2019, 06/04/2016, 05/01/2015, Additional history exists Zoster Vaccines Completed 09/18/2021, 07/13/2021 Influenza Vaccine Completed 04/28/2025, , 05/14/2023, Additional history exists HIB Vaccines Aged Out [...] without long-term current use of insulin (HCC) POCT GLUCOSE Routine 04/28/2025 11:02 AM EDT Type 2 diabetes mellitus without complication, without long-term current use of insulin ([facility]) MAMMOGRAPHY Routine 04/14/2025 1:28 PM EDT LIPID PANEL, STANDARD Routine 10/26/2024 10:58 AM EDT Type 2 diabetes mellitus without complication, without long-term current use of insulin ([facility]) Essential hypertension ALBUMIN, RANDOM URINE W/CREATININE Routine 05/22/2023 11:40 AM EDT from Last 3 Months or Most Recently Relevant to Health Maintenance Results * (ABNORMAL) POCT Hgb A1c (04/28/2025 11:03 AM EDT) Hemoglobin A1C 7.7(A) 4.0 - 5.7 % QC Media Lot # [id number] Lot# Expiration Date ,904,542 Blood 04/28/2025 11:0 3 AM EDT Rossi Huston MD POINT OF CARE TEST ENTER/EDIT OR DERABLES Final Result * (ABNORMAL) POCT Glucose (04/28/2025 11:02 AM EDT) Glucose Blood, POC 150(A) 60 - 200 mg/dL QC Media Lot # [id number] Lot# Expiration Date ,10,812 Blood Capillary blood specimen / Unknown 04/28/2025 11:02 AM EDT Rossi Huston MD POINT OF CARE TEST ENTER/EDIT OR DERABLES Final Result * Mammography (04/14/2025 1:28 PM EDT) Anatomical Region Laterality Modality Other Toni Khanna MD HEALTH MAINTENANCE Final Result * Lipid Panel, Standard (10/26/2024 10:58 AM EDT) Triglycerides 97 <150 mg/dL [facility] Comment:Desirable Triglyceri de: less than 150 mg/dLBorderline High Triglyceride 150-199 mg/dLHigh Triglyceride: 200-499 mg/dLVery High Triglyceride: greater than or equal to 5OO mg/dL Cholesterol 117 <200 mg/dL [facility] Comment:Desirable Cholestero l: less than 200 mg/dLBorderline High Cholesterol: 200-239 mg/dLHigh Cholesterol: greater than 239 mg/dL LDL Cholesterol Calculated 55 <100 mg/dL [facility] Comment:Desirable LDL: less than 100 mg/dLNear Optimal/Above Optimal LDL: 110- 129 mg/dLBorderline High LDL: 130-159 mg/dLHigh LDL: 160-189 mg/dLVery High LDL: greater than or equal to 190 mg/dL HDL Cholesterol 43 >40 mg/dL [facility] Comment:Desirable HDL: great er than 40 mg/dL Note: This HDL assay may give artificially low results in patients with liver disease. Blood Venous blood specimen / Unknown 10/26/2024 10:58 AM EDT 10/26/2024 2:43 PM EDT us Rossi Huston MD LAB BLOOD ORDERABLES Final Resul t [facility] [address] [place] [phone] * Albumin, Random Urine W/Creatinine (05/22/2023 11:40 AM EDT) Creatinine, Urine 263.29 mg/dL [facility] Microalbumin Urine 36.0 mg/L [facility] Microalbum Creatinine Ratio Ur 13.6 <30 ug/mg cr [facility] Comment:Albumin/Creatinine R atio Reference Ranges: Normal: < 30 ug/mg creatinine Microalbuminuria: 30 - 300 ug/mg creatinineClinical Albuminuria: > 300 ug/mg creatinine 05/22/2023 11:4 0 AM EDT 05/22/2023 2:28 PM EDT us Rossi Huston MD LAB URINE ORDERABLES Final Resul t [facility] [address] [place] [address] [phone] from Last 3 Months or Most Recently Relevant to Health Maintenance Insurance [facility] RETIREMENT [employer] (HMO D-SNP) SAMARA RAMIREZ [id number] Care Teams Clicking Machine Operator Relationship Specialty Start Date End Date Rossi Huston MD [address] [place] [phone] PCP - General Family Medicine 08/26/13
--- OUTSIDE RECORDS SUMMARY | 2025-04-28 13:11 | XMS_ITS | Encounter Summary ---
Author Organization [employer] Address [address] [facility] 7t [place] [address] Care Team Providers Care Department Store Door Greeter Name Role Phone Rossi Huston MD Primary Care Provider [phone] Reason for Visit * Reason Comments Med Refill Encounter Details Date Type Department Care Team ([facility] st Contact Info) Description 08/19/2023 Refill [facility] MED & PEDS [address] [place] [address] Rossi Huston MD [address] [place] [address] Social History Tobacco Use Types Packs/Day Years [...] documented as of this encounter Care Teams Department Store Door Greeter Relationship Specialty Start Date End Date Rossi Huston MD [address] [place] [phone] PCP - General Family Medicine 08/26/13 documented as of this encounter
--- OUTSIDE RECORDS SUMMARY | 2025-04-28 13:11 | XMS_ITS | Encounter Summary ---
Author Organization [employer] Address [address] [facility] 7t [place] [address] Care Team Providers Care Hse Manager Name Role Phone Rossi Huston MD Primary Care Provider [phone] Reason for Visit * Reason Comments Med Refill Encounter Details Date Type Department Care Team (Late st Contact Info) Description 05/03/2023 Refill [facility] MED [facility] PEDS [address] [place] [address] Rossi Huston MD [address] [place] [address] Social History Tobacco Use Types Packs/Day Years [...] on filedocumented in this encounter Care Teams Hse Manager Relationship Specialty Start Date End Date Rossi Huston MD [address] [place] [phone] PCP - General Family Medicine 08/26/13 documented as of this encounter
--- OUTSIDE RECORDS SUMMARY | 2025-04-28 13:11 | XMS_ITS | Encounter Summary ---
Author Organization [employer] Address [address] [facility] 7t [place] [address] Care Team Providers Care Pipe Finishing Supervisor Name Role Phone Rossi Huston MD Primary Care Provider [phone] Encounter Details Date Type Department Care Team ([facility] st Contact Info) Description 09/30/2024 Orders Only [facility] MED & PEDS [address] [place] [address] ProviderToni MD Social History Tobacco Use Types [...] documented as of this encounter Care Teams Pipe Finishing Supervisor Relationship Specialty Start Date End Date Rossi Huston MD [address] [place] [phone] PCP - General Family Medicine 08/26/13 documented as of this encounter
--- OUTSIDE RECORDS SUMMARY | 2025-04-28 13:11 | XMS_ITS | Encounter Summary ---
Author Organization [employer] Address [address] [facility] [address] [place] [address] Care Team Providers Care Black Leather Trimmer Name Role Phone Rossi Huston MD Primary Care Provider [phone] Reason for Visit * Reason Comments Med Refill Encounter Details Date Type Department Care Team ([facility] st Contact Info) Description 05/08/2023 Refill [facility] [address] [place], [place] [id number] Gerber Tello MD [address] [place] [address] Social History Tobacco Use Types Packs/Day Years [...] on filedocumented in this encounter Care Teams Black Leather Trimmer Relationship Specialty Start Date End Date Rossi Huston MD [address] [place] [phone] PCP - General Family Medicine 08/26/13 documented as of this encounter
--- OUTSIDE RECORDS SUMMARY | 2025-04-28 13:11 | XMS_ITS | Encounter Summary ---
Author Organization [employer] Address [address] [facility] 7t [place] [address] Care Team Providers Care Endless Bed Drum Sander Name Role Phone Rossi Huston MD Primary Care Provider [phone] Reason for Visit * Reason Comments Med Refill Encounter Details Date Type Department Care Team ([facility] st Contact Info) Description 11/29/2024 Refill [facility] PEDS [address] [place] [address] Rossi Huston MD [address] [place] [address] Social History Tobacco Use Types Packs/Day Years [...] documented as of this encounter Care Teams Endless Bed Drum Sander Relationship Specialty Start Date End Date Rossi Huston MD [address] [place] [address] PCP - General Family Medicine 08/26/13 documented as of this encounter
--- OUTSIDE RECORDS SUMMARY | 2025-04-28 13:11 | XMS_ITS | Encounter Summary ---
Author Organization [employer] Address [address] [facility] 7t [place] [address] Care Team Providers Care High Density Press Operator Name Role Phone Rossi Huston MD Primary Care Provider [phone] Encounter Details Date Type Department Care Team ([facility] st Contact Info) Description 11/15/2022 Orders Only [facility] MED & PEDS [address] [place] [address] Ly Keane LPN Social History Tobacco Use [...] on filedocumented in this encounter Care Teams High Density Press Operator Relationship Specialty Start Date End Date Rossi Huston MD [address] [place] [id number] PCP - General Family Medicine 08/26/13 documented as of this encounter
--- OUTSIDE RECORDS SUMMARY | 2025-04-28 13:11 | XMS_ITS | Encounter Summary ---
Author Organization [employer] Address [address] [facility] [address] [place] [address] Care Team Providers Care Political Science Research Assistant Name Role Phone Rossi Huston MD Primary Care Provider [phone] Encounter Details Date Type Department Care Team ([facility] st Contact Info) Description 04/15/2025 Orders Only [facility] [address] [place] [address] ProviderToni MD Social History Tobacco Use Types [...] Date/Time Associated Diagnosis Comments HM MAMMOGRAPHY Routine 04/14/2025 1:28 PM EDT documented in this encounter Results * Hm Mammography (04/14/2025 1:28 PM EDT) Anatomical Region Laterality Modality Other us Historical Provider HEALTH MAINTENANCE Final Result documented in this encounter Visit Diagnoses Not on filedocumented in this encounter Additional Health Concerns Assessment Noted Time PHQ-9 Depression Total Score: 0 12/18/19 24 11:05 AM EDT documented as of this encounter Care Teams Political Science Research Assistant Relationship Specialty Start Date End Date Rossi Huston MD [address] [place] [id number] PCP - General Family Medicine 08/26/13 documented as of this encounter
--- OUTSIDE RECORDS SUMMARY | 2025-04-28 13:11 | XMS_ITS | Encounter Summary ---
Author Organization [employer] Address [address] [facility] [address] [place] [address] Care Team Providers Care Ion Implant Machine Operator Name Role Phone Rossi Huston MD Primary Care Provider [phone] Reason for Visit * Reason Onset Date Comments Chart Prep 04/27/2025 Encounter Details Date Type Department Care Team ([facility] Contact Info) Description 04/27/2025 Telephone [facility] [address] [place] [address] Rossi Huston MD [address] [place] [address] Chart Prep Social History Tobacco Use Types Packs/Day Years [...] as of this encounter Miscellaneous Notes * Telephone Encounter - Maria De Jesus Grover [place] - 04/27/2025 10:14 AM EDT Chart Prep Labs: done Images: not applicable Referrals: not applicable Vaccines due: Covid and Flu Screenings: colonoscopy, eye exam, and foot exam Overdue care gaps: A1c, Glucose, SBIRT, and PHQ-9 documented in this encounter Plan of Treatment Not on file documented as of this encounter Visit Diagnoses Not on filedocumented in this encounter Additional Health Concerns Assessment Noted Time PHQ-9 Depression Total Score: 0 12/18/19 24 11:05 AM EDT documented as of this encounter Care Teams Ion Implant Machine Operator Relationship Specialty Start Date End Date Rossi Huston MD [address] [place] [id number] PCP - General Family Medicine 08/26/13 documented as of this encounter
--- OUTSIDE RECORDS SUMMARY | 2025-04-28 13:11 | XMS_ITS | Clinical Summary ---
Author Organization [employer] [facility] ity Address [address] [place] [address] Care Team Providers Care Cashier Gambling Name Role Phone Unavailable Primary Care Provider [...]
--- OUTSIDE RECORDS SUMMARY | 2025-04-28 13:11 | XMS_ITS | Encounter Summary ---
Author Organization [employer] Address [address] [facility] [address] [place] [address] Care Team Providers Care Manager Product Design Name Role Phone Rossi Huston MD Primary Care Provider [phone] Encounter Details Date Type Department Care Team (Latest Contact Info) Description 04/28/2025 Travel Social History Tobacco Use Types Packs/Day [...] AM EDT documented as of this encounter Functional Status * Over the past 2 weeks, how often have you been bothered by any of the following problems? Question Answer Date of Assessment Author Patient Health Questionnaire -2 Score 0 04/28/2025 11:06 AM Queta Garrison MA * Little interest or pleasure in [...] Garrison [place] documented as of this encounter Plan of Treatment Not on file documented as of this encounter Visit Diagnoses Not on filedocumented in this encounter Additional Health Concerns Assessment Noted Time PHQ-9 Depression Total Score: 0 04/28/20 25 11:06 AM EDT documented as of this encounter Care Teams Manager Product Design Relationship Specialty Start Date End Date Rossi Huston MD [address] [place] [id number] PCP - General Family Medicine 08/26/13 documented as of this encounter
--- OUTSIDE RECORDS SUMMARY | 2025-04-28 13:11 | XMS_ITS | Encounter Summary ---
Author Organization [employer] Address [address] [facility] [address] [place] [address] Care Team Providers Care Operational Test Mechanic Name Role Phone Rossi Huston MD Primary Care Provider [phone] Reason for Visit * Reason Comments Med Refill Encounter Details Date Type Department Care Team ([facility] st Contact Info) Description 04/27/2025 Refill [facility]S [address] [place] [address] Rossi Huston MD [address] [place] [address] Social History Tobacco Use Types Packs/Day Years [...] documented as of this encounter Care Teams Operational Test Mechanic Relationship Specialty Start Date End Date Rossi Huston MD [address] [place] [address] PCP - General Family Medicine 08/26/13 documented as of this encounter
[2025-04-28 15:07] LABS: Alanine Aminotransferase 25 U/L (0-31); Albumin Level 4.9 g/dL (3.5-5.0); Alkaline Phosphatase 83 U/L (39-117); Anion Gap 12 (12-20); Aspartate Amino Transferase 28 U/L (5-31); Blood Urea Nitrogen 21 mg/dL (9-16); Calcium 9.9 mg/dL (8.4-10.2); Carbon Dioxide 27 mmol/L (22-29); Chloride 109 mmol/L (96-108); Cholesterol 113 mg/dL (<200); Estimated Glomerular Filt Rate 52; HDL Cholesterol 55 mg/dL (>40); Potassium 4.3 mmol/L (3.3-5.1); Sodium 144 mmol/L (135-145); Total Protein 7.7 g/dL (6.5-8.0); Triglycerides 62 mg/dL (<150)
== END 2025-04-28 11:17 | disposition home or self-care (01) ==
LOC: HO.CHCLDS 11:16
PROVIDERS: Visit Provider Student in an Organized Health Care Education/Training Program
DX: E11.9 Type 2 diabetes mellitus without complications (principal)
CPT/HCPCS: 36415; 80048; 80061; 80076